=== PATIENT | male | born 1935 | race Caucasian/White ===

== ENCOUNTER → 2023-12-23 14:18 | Outpatient (REF) | payer MEDICARE, SELFPAY | LOC: RCS 14:18 | PROVIDERS: ATTENDING PHYSICIAN Internal Medicine Cardiovascular Disease; FAMILY PHYSICIAN Student in an Organized Health Care Education/Training Program | DX: I35.1 Nonrheumatic aortic (valve) insufficiency (principal) | CPT/HCPCS: 93306 ==

== ENCOUNTER → 2024-01-23 13:49 | Outpatient (REF) | payer MEDICARE, SELFPAY | LOC: HWRAD 13:49 | PROVIDERS: ATTENDING PHYSICIAN Student in an Organized Health Care Education/Training Program | DX: R06.02 Shortness of breath (principal) | CPT/HCPCS: 71046 ==

== ENCOUNTER → 2024-03-02 10:45 | Outpatient (REF) | payer MEDICARE, SELFPAY ==
[2024-03-02 11:59] LABS: Hemoglobin 12.2 g/dL (13.0-18.0); Mean Corp Hgb Conc. 34.9 g/dL (33.0-37.0); Mean Corpuscular Hgb 32.3 pg (27.0-31.0); Mean Corpuscular Volume 92.6 fL (80.0-94.0); Mean Platelet Volume 10.1 fL (7.4-10.4); Platelet Count 265 10^3/uL (130-400); Red Blood Cell Count 3.78 10^6/uL (4.70-6.10)
[2024-03-02 13:41] LABS: Blood Urea Nitrogen 32 mg/dl (9-20); Calcium 9.3 mg/dl (8.4-10.2); Carbon Dioxide 18 mmol/L (22-30); Chloride 109 mmol/L (98-107); Glucose 113 mg/dl (70-99); Potassium 5.1 mmol/L (3.5-5.1); Sodium 140 mmol/L (135-145); eGFR 48.34
== END ==
LOC: REG 10:45
PROVIDERS: ATTENDING PHYSICIAN Urology; FAMILY PHYSICIAN Student in an Organized Health Care Education/Training Program
DX: N40.1 Benign prostatic hyperplasia with lower urinary tract symptoms (principal)
CPT/HCPCS: 36415; 80048; 85027

== ENCOUNTER 2024-03-05 10:38 | Inpatient (IN) | payer MEDICARE, SELFPAY ==
[2024-02-28 09:51] VITALS: BMI 32.9
[2024-02-28 10:32] LABS: Hematocrit 37.1 % (39.0-52.0); Mean Corpuscular Hgb 32.3 pg (27.0-31.0); Mean Corpuscular Volume 92.3 fL (80.0-94.0); Mean Platelet Volume 10.2 fL (7.4-10.4); Platelet Count 266 10^3/uL (130-400); Red Blood Cell Count 4.02 10^6/uL (4.70-6.10); White Blood Cell Count 9.1 10^3/uL (4.8-10.8)
[2024-02-28 10:46] LABS: INR 1.13; PT 14.3 Sec (11.4-14.6)
[2024-02-28 10:47] LABS: APTT 27.8 Sec (23.4-35.0)
[2024-02-28 10:59] LABS: Blood Urea Nitrogen 43 mg/dl (9-20); Calcium 9.6 mg/dl (8.4-10.2); Carbon Dioxide 16 mmol/L (22-30); Chloride 111 mmol/L (98-107); Estimated Creatinine Clearance 36 ml/min; Glucose 110 mg/dl (70-99); Potassium 5.4 mmol/L (3.5-5.1); Sodium 140 mmol/L (135-145)
--- NOTE | 2024-02-28 12:23 | PTCARENOTE ---
[facility] (K+ 5.4, Creat 1.5, BUN 43), Shannan at MD office notified.
[2024-03-03] VITALS (14 sets, daily range): BP systolic 92–134; BP diastolic 51–79; BMI 32.9
[2024-03-03] MEDS: NORMOSOL-R/PLASMALYTE-A 1000 IV (08:55)
--- NOTE | 2024-03-03 11:39 | W.IMMPOSTOP ---
Surgical Immed Post Op Note
-
Primary Surgeon: Zayrafer
Assisting Surgeon: -
Pre-op Diagnosis: BPH, urethral stricture
Post-op Diagnosis: same
Procedure Performed: TURP, urethral dilation with Optilume
Anesthesia Type: genera;
Specimen / Cultures: prostate chips
Estimated Blood Loss: 5cc
Complications: none
Operative Findings: large prostate, significant tissue resected, bulbar urethral stricture <1cm dilated to 30Fr and Optilume administered
[2024-03-03] MEDS: NSS 1000 IV (12:01)
[2024-03-03 12:04] LABS: Hematocrit 33.7 % (39.0-52.0); Hemoglobin 11.7 g/dL (13.0-18.0); Mean Corp Hgb Conc. 34.7 g/dL (33.0-37.0); Mean Corpuscular Hgb 32.4 pg (27.0-31.0); Mean Corpuscular Volume 93.4 fL (80.0-94.0); Platelet Count 222 10^3/uL (130-400); Red Blood Cell Count 3.61 10^6/uL (4.70-6.10); Red Cell Dist. Width 12.8 % (11.5-14.5)
[2024-03-03 12:25] LABS: Blood Urea Nitrogen 31 mg/dl (9-20); Calcium 9.1 mg/dl (8.4-10.2); Carbon Dioxide 19 mmol/L (22-30); Chloride 110 mmol/L (98-107); Estimated Creatinine Clearance 39 ml/min; Glucose 132 mg/dl (70-99); Potassium 5.3 mmol/L (3.5-5.1); Sodium 138 mmol/L (135-145); eGFR 48.34
--- NOTE | 2024-03-03 13:05 | PTCARENOTE ---
Received pt from PACU. 3-way Howe in place CBI running draining clear/ pale yellow urine. VSS and pt on 2L O2. IV fluids NSS @ 75mL/hr running. Pt is AAOx3 and offers no complaints at this time. Oriented to room and call curran within reach.
[2024-03-03] MEDS: TYLENOL 650 MG PO (14:58)
[2024-03-03] MEDS: DETROL LA 4 MG PO (14:58)
--- NOTE | 2024-03-03 15:08 | W.PN.URO.CBU ---
Today's Communication / Plan
-
post op care
Assessment / Plan
-
88M with recurrent BPH related symptoms, obstructive prostate, and mild urethral stricture disease
POD 0 s/p TURP, Optilume urethral stricture dilation
- CBI, clamp in AM
- Discharge with lemus in place for trial of void being arranged - keeping catheter for 48h post Optilume
- CM consulted - VN for home lemus care
- Some asymptomatic metabolic acidosis on preop labs, stable and slightly improved post op
- Trend BMP
- If stable, recommend outpatient follow up with PCP Dr. Ruvalcaba - discussed with him preop and has follow up arranged
Diagnosis
-
Date of Service: March 03, 2024
-
Patient Diagnosis:
BPH
Urethral stricture
Post Op Day:
Subjective
-
post op
Objective
-
Vital Signs
Temp Pulse Resp BP Pulse Ox
97.2 F 58 16 114/55 98
03/03/24 13:30 03/03/24 13:30 03/03/24 13:30 03/03/24 13:30 03/03/24 13:30
Intake and Output
03/02/24 03/03/24 03/04/24
06:59 06:59 06:59
Intake Total 124 / 124
Output Total 50 / 50
Balance 74 / 74
Intake:
Oral fluids
IV fluids (Total) 112 / 112
Nss 1,000 ml @ 75 mls/hr IV . 37 37
[id number] [place] Rx#:[id number]
norm 75 / 75
Output:
True Urine Output from CBI 50 / 50
Laboratory Results
03/03/24 11:52
08/27/24 11:52
Physical Exam
-
General - well developed, well nourished, no acute distress
Chest - clear
Abdomen - soft, non-tender
- 3 way le[address] in [address] clear urine
Skin - warm & dry with no rash
Neuro - AOx3, no motor deficits
Extremities - no clubbing, no cyanosis, no edema
[2024-03-03] MEDS: CRESTOR 10 MG PO (19:22)
[2024-03-03] MEDS: SENOKOT 17.2 MG PO (20:18)
[2024-03-03] MEDS: FLOMAX 0.4 MG PO (22:18)
[2024-03-03] MEDS: ZESTRIL 5 MG PO (22:18)
[2024-03-03] MEDS: PROSCAR 5 MG PO (22:19)
[2024-03-04] VITALS (7 sets, daily range): BP systolic 109–121; BP diastolic 56–74
--- NOTE | 2024-03-04 07:30 | W.PN.URO.CBU ---
Today's Communication / Plan
-
- Restart CBI today - wean as tolerated to clear/clot-free
- Plan to keep additional 24 hrs due to ongoing hematuria requiring CBI
- Possible d/c 03/05 - will plan for inpatient TOV if so
D/w patient.
D/w RN.
Assessment / Plan
-
88M with recurrent BPH related symptoms, obstructive prostate, and mild urethral stricture disease
POD 1 s/p TURP, Optilume urethral stricture dilation
- Restart CBI today - wean as tolerated to clear/clot-free
- Plan to keep additional 24 hrs due to ongoing hematuria requiring CBI
- Possible d/c 03/05 - will plan for inpatient TOV if so
Diagnosis
-
Date of Service: March 04, 2024
-
Patient Diagnosis:
BPH
Urethral stricture
03/03: s/p TURP + Optilume
Subjective
-
Urine clamped @0600 - notable grossly bloody urine @0800 this AM.
Mild bloody discharge per urethra around catheter (expected).
Denies penile/suprapubic pain.
Objective
-
Vital Signs
Temp Pulse Resp BP Pulse Ox
97.6 F 63 18 117/59 97
03/04/24 03:07 03/04/24 03:07 03/04/24 03:07 03/04/24 03:07 03/04/24 03:07
Intake and Output
03/03/24 03/04/24 03/05/24
06:59 06:59 06:59
Intake Total 1319 / 1319
Output Total 1900 / 1900
Balance -581 / -581
Intake:
Oral fluids 832 / 832
IV fluids (Total) 487 / 487
Nss 1,000 ml @ 75 mls/hr IV . 37 /
[id number] [place] Rx#:[id number]
norm 75 / 75
Output:
True Urine Output from CBI 1899
Physical Exam
-
General - well developed, well nourished, no acute distress
Abdomen - soft, non-tender, non-distended
- 3-way catheter w/ frankly blood urine output in tubing, no obvious clots
Skin - warm & dry with no rash
Neuro - AOx3, no motor deficits
Extremities - no clubbing, no cyanosis, no edema
Care Review
Data Reviewed
Discussed with: Nursing
Total Time Spent with Patient (in minutes): 30
[2024-03-04 08:26] LABS: Hemoglobin 11.9 g/dL (13.0-18.0); Mean Corpuscular Hgb 33.2 pg (27.0-31.0); Mean Platelet Volume 10.3 fL (7.4-10.4); Platelet Count 229 10^3/uL (130-400); Red Blood Cell Count 3.58 10^6/uL (4.70-6.10); Red Cell Dist. Width 12.7 % (11.5-14.5); White Blood Cell Count 18.8 10^3/uL (4.8-10.8)
[2024-03-04] MEDS: SENOKOT 17.2 MG PO (08:49)
[2024-03-04] MEDS: LOW STRENGTH ASPIRIN 81 MG PO (08:50)
[2024-03-04] MEDS: ALDACTONE 25 MG PO (08:50)
[2024-03-04] MEDS: TOPROL XL 25 MG PO (08:50)
[2024-03-04] MEDS: NORVASC 2.5 MG PO (08:50)
[2024-03-04 08:58] LABS: Blood Urea Nitrogen 32 mg/dl (9-20); Calcium 9.2 mg/dl (8.4-10.2); Carbon Dioxide 15 mmol/L (22-30); Chloride 111 mmol/L (98-107); Estimated Creatinine Clearance 42 ml/min; Glucose 142 mg/dl (70-99); Potassium 5.6 mmol/L (3.5-5.1); Sodium 139 mmol/L (135-145); eGFR 52.84
--- NOTE | 2024-03-04 12:51 | CM ---
Patient seen bedside.
Daughter bedside with patient.
IA completed.
Patient lives alone in a 1 story home with 1 step.
Patient has a very old standard walker, would like a new RW if recommended by therapy.
Patient also has a cane.
Patient drives.
Patients daughter reports LE weakness at home and difficulty with LE dressing and would like therapy to evaluate. CM requested PT/OT evals.
Patient currently with [facility] and CBI.
It PT/OT recommend home therapy or patient needs VN, patient and daughter would like [facility].
PCP: Dr Welch
Pharmacy: [facility]
Plan: home with possible VN needs ([facility] if indicated)
--- NOTE | 2024-03-04 13:46 | CON.HOSP ---
Family Physician
-
Family Physician: Ramirez Ruvalcaba, DO
Chief Complaint
-
Hyperkalemia
History of Present Illness
88-year-old male with a past medical history of hypertension, hyperlipidemia, CAD status post stent placement, BPH with obstructive symptoms, and mild urethral stricture was admitted yesterday for TURP and optilume urethral stricture dilation.
Patient was found to have worsening hyperkalemia today. Potassium is 5.6, was 5.3 yesterday. Internal medicine was consulted for hyperkalemia.
Currently patient denies pain. He does have hematuria. No chest pain, no nausea, no vomiting. He has chronic shortness of breath. No fever.
Medical History
Past Medical History
Past Medical History: Reports Other
Additional Past Medical History:
Asthma
Hypertension
Hyperlipidemia
Coronary artery disease status post stent placement x 2
Benign prostatic hypertrophy with obstruction
Mild urethral stricture
Past Surgical History: Reports Other
Additional Past Surgical History:
Prostate surgery
Cardiac stent x 2
Umbilical hernia repair
Social History
Tobacco: Former Smoker
Alcohol: None
Personal:
Family History
Family History: Reviewed & Not Pertinent
Allergies / Home Medications
Allergies reflects when Allergies were last updated in [facility].
Home Medications with original date entered in [facility]
Allergy/Medication List:
Allergies
Allergy/AdvReac Type Severity Reaction Status Date / Time
Penicillins Allergy Unknown Verified 03/03/24 08:20
Home Medications Table - record
�Medication �Instructions �Recorded �Confirmed
amlodipine 2.5 mg tablet 2.5 mg PO DAILY 08/28/21 03/03/24
aspirin 81 mg chewable tablet 81 mg PO DAILY 08/28/21 03/03/24
finasteride 5 mg tablet 5 mg PO HS 08/28/21 03/03/24
rosuvastatin 10 mg tablet 10 mg PO QPM 08/28/21 03/03/24
albuterol sulfate 90 mcg/actuation 2 inh inhalation Q4H PRN shortness 12/12/22 03/03/24
breath activated powder inhaler of breath #1 ea
famotidine 20 mg tablet 20 mg PO PRN PRN GERD 02/26/24 03/03/24
lisinopril 5 mg tablet 5 mg PO HS 02/26/24 03/03/24
silodosin 8 mg capsule 8 mg PO HS 02/26/24 03/03/24
spironolactone 25 mg tablet 25 mg PO DAILY 02/26/24 03/03/24
metoprolol succinate 25 mg 25 mg PO DAILY 03/03/24 03/03/24
tablet,extended release 24 hr
Review of Systems
-
A 12 point Review of Systems was completed except as noted: Yes
Physical Exam
Vital Signs
Vital Signs
Temp Pulse Resp BP Pulse Ox
97.8 F 84 16 109/56 97
03/04/24 11:25 03/04/24 11:25 03/04/24 11:25 03/04/24 11:25 03/04/24 11:25
Physical Exam
General: No Apparent Distress
HEENT: Normocephalic, Anicteric and Moist Mucous Membranes
Respiratory: Clear
Cardiac: S1/S2
GI: Soft, Non Tender, Non Distended and Normal Bowel Sounds
Musculoskeletal: No Clubbing and No Cyanosis
Skin: Warm
Neuro: Awake, Alert and Oriented
Psych: Calm
Laboratory Results
-
Laboratory Results
03/04/24 07:33
03/04/24 07:33
PT 14.3 Sec (11.4-14.6) 02/28/24 09:57
INR 1.13 02/28/24 09:57
APTT 27.8 Sec (23.4-35.0) 02/28/24 09:57
Impression / Plan
-
HPI: 88-year-old male with a past medical history of hypertension, hyperlipidemia, CAD status post stent placement, BPH with obstructive symptoms, and mild urethral stricture was admitted yesterday for TURP and optilume urethral stricture dilation.
Patient was found to have worsening hyperkalemia today. Potassium is 5.6, was 5.3 yesterday. Internal medicine was consulted for hyperkalemia.
Currently patient denies pain. He does have hematuria. No chest pain, no nausea, no vomiting. He has chronic shortness of breath. No fever.
#BPH with obstructive symptoms
#Mild urethral stricture
TURP and optilume urethral stricture dilation 03/03
Plan of care as per urology
#Hematuria
CBI as per urology
#Hyperkalemia
Potassium 5.6 today
Give Lokelma, hold lisinopril/spironolactone, low potassium diet
Recheck a.m. labs
#Non-anion gap metabolic acidosis
Sodium bicarb IV fluids, oral sodium bicarb
Recheck a.m. labs
#Leukocytosis
Likely reactive
Patient is afebrile, monitor off antibiotics
#Constipation
Start aggressive bowel regimen
#Probable stage III chronic kidney disease
Trend creatinine
#Obesity due to excess calories
Affects all aspects of care
DVT prophylaxis�SCDs secondary to hematuria
Full code
Total time spent to see the patient on the floor, examine the patient, review data and lab results, discuss treatment plan with patient, nursing staff around 77 minutes.
[2024-03-04] MEDS: LOKELMA 10 GRAM PO ×2 (14:40→18:31)
[2024-03-04] MEDS: SODIUM BICARBONATE 1300 MG PO ×2 (14:45→21:03)
[2024-03-04] MEDS: MIRALAX 17 GRAMS PO (14:48)
[2024-03-04] MEDS: SODIUM BICARBONATE 1075 MEQ IV (14:49)
[2024-03-04] MEDS: SODIUM BICARBONATE PO (17:00)
[2024-03-04] MEDS: CRESTOR 10 MG PO (18:00)
[2024-03-04 18:47] LABS: COVID-19 Antigen Negative (Negative)
[2024-03-04] MEDS: ROBITUSSIN AC 5 ML PO (18:47)
[2024-03-04] MEDS: SENOKOT-S 2 TABLET PO (20:00)
[2024-03-04] MEDS: SENOKOT PO (20:00)
[2024-03-04] MEDS: PROSCAR 5 MG PO (21:03)
[2024-03-04] MEDS: FLOMAX 0.4 MG PO (21:03)
[2024-03-05] MEDS: SODIUM BICARBONATE 1075 MEQ IV (03:52)
[2024-03-05 06:00] VITALS: BMI 32.9
[2024-03-05] MEDS: LOKELMA 10 GRAM PO (06:22)
[2024-03-05 07:00] VITALS: BP 126/77
[2024-03-05] MEDS: SENOKOT PO ×2 (08:01→19:58)
--- NOTE | 2024-03-05 08:04 | W.PN.HOSP.TC ---
Today's Communication/Plan
-
see bold
Assessment / Plan
Assessment / Plan
HPI: 88-year-old male with a past medical history of hypertension, hyperlipidemia, CAD status post stent placement, BPH with obstructive symptoms, and mild urethral stricture was admitted yesterday for TURP and optilume urethral stricture dilation.
Patient was found to have worsening hyperkalemia today. Potassium is 5.6, was 5.3 yesterday. Internal medicine was consulted for hyperkalemia.
Currently patient denies pain. He does have hematuria. No chest pain, no nausea, no vomiting. He has chronic shortness of breath. No fever.
#BPH with obstructive symptoms
#Mild urethral stricture
TURP and optilume urethral stricture dilation 03/03
Plan of care as per urology
Needs STR upon dc
#Hematuria
CBI off and lemus removed for trial of void
#Hyperkalemia
Potassium normalized, status post Lokelma
Continue to hold lisinopril/spironolactone, low potassium diet
Monitor
#Non-anion gap metabolic acidosis
Resolved status post sodium bicarb IV fluids, oral sodium bicarb
#Leukocytosis
Likely reactive
Patient is afebrile, monitor off antibiotics
#Constipation
Resolved, will decrease bowel regimen
#Probable stage III chronic kidney disease
Trend creatinine
#Obesity due to excess calories
Affects all aspects of care
DVT prophylaxis�SCDs secondary to hematuria
Full code
Updated daughter at bedside 03/05
Total time spent to see the patient on the floor, examine the patient, review data and lab results, discuss treatment plan with patient, nursing staff around 42 minutes.
Physical Exam
General: Obese, no acute distress
HEENT: Normocephalic, Atraumatic, EOMI, MMM
Respiratory: Clear to Auscultation bilaterally
Cardiac: Normal S1/S2, Regular Rate and Rhythm
GI: Soft, Nontender, Nondistended, Normal Bowel Sounds
Extremities: No Clubbing, Cyanosis, or Edema
Anticipated Discharge: Within 24 hours
Subjective/Interval History
-
Date of Service: March 05, 2024
Patient has had multiple bowel movements. Has chronic shortness of breath. No fever, no vomiting.
Objective Data
-
Labs:
Laboratory Results
03/05/24
06:00
WBC Pending
Hgb Pending
Hct Pending
Plt Count Pending
Sodium Pending
Potassium Pending
Chloride Pending
Carbon Dioxide Pending
BUN Pending
Creatinine Pending
Glucose Pending
Calcium Pending
Vital Signs:
Vital Signs
Temp Pulse Resp BP Pulse Ox
98.1 F 62 18 118/66 95
03/04/24 22:37 03/04/24 22:37 03/04/24 22:37 03/04/24 22:37 03/04/24 22:37
I&O
03/04/24 03/05/24 03/06/24
06:59 06:59 06:59
Intake Total 1319 / 1319 1979 / 1979
Output Total 1900 / 1900 3550 / 3550
Balance -581 / -581 -1570 / -1570
[2024-03-05] MEDS: MIRALAX PO (08:27)
[2024-03-05] MEDS: LOW STRENGTH ASPIRIN 81 MG PO (08:27)
[2024-03-05] MEDS: SODIUM BICARBONATE 1300 MG PO (08:27)
[2024-03-05] MEDS: SENOKOT-S PO (08:27)
[2024-03-05] MEDS: NORVASC 2.5 MG PO (08:27)
[2024-03-05] MEDS: TOPROL XL 25 MG PO (08:28)
[2024-03-05 09:02] LABS: Hematocrit 36.2 % (39.0-52.0); Hemoglobin 12.5 g/dL (13.0-18.0); Mean Corp Hgb Conc. 34.5 g/dL (33.0-37.0); Mean Corpuscular Hgb 32.1 pg (27.0-31.0); Mean Corpuscular Volume 93.1 fL (80.0-94.0); Mean Platelet Volume 10.1 fL (7.4-10.4); Platelet Count 258 10^3/uL (130-400); Red Blood Cell Count 3.89 10^6/uL (4.70-6.10); Red Cell Dist. Width 13.2 % (11.5-14.5); White Blood Cell Count 15.8 10^3/uL (4.8-10.8)
[2024-03-05 09:25] VITALS: BP 147/81; PULSE 104; O2SAT 98
[2024-03-05 09:27] VITALS: BP 147/81
[2024-03-05 09:29] LABS: Blood Urea Nitrogen 32 mg/dl (9-20); Carbon Dioxide 23 mmol/L (22-30); Chloride 106 mmol/L (98-107); Estimated Creatinine Clearance 42 ml/min; Glucose 127 mg/dl (70-99); Magnesium 1.9 mg/dl (1.6-2.3); Potassium 4.5 mmol/L (3.5-5.1); Sodium 139 mmol/L (135-145); eGFR 52.84
--- NOTE | 2024-03-05 09:55 | PTCARENOTE ---
Howe removed by nephrology, CBI output documented, pt and family member made aware of need to void by 1600 today. Pt resting comfortably in the chair, no new orders at this time.
--- NOTE | 2024-03-05 10:01 | W.PN.URO.CBU ---
Today's Communication / Plan
-
Trial of void
Dispo planning
Assessment / Plan
-
88M with recurrent BPH related symptoms, obstructive prostate, and mild urethral stricture disease
POD 2 s/p TURP, Optilume urethral stricture dilation
- Hematuria resolved this AM
- CBI off and lemus removed for trial of void
- Having BMs this AM
- Leukocytosis likely reactive post op
- Hospitalist recommendations for hyperkalemia and acidosis
- PT/OT recs for dispo - possible rehab
Diagnosis
-
Date of Service: March 05, 2024
-
Patient Diagnosis:
BPH
Urethral stricture
03/03: s/p TURP + Optilume
Subjective
-
had BMs this AM feeling better
Hematuria resolved
Objective
-
Vital Signs
Temp Pulse Resp BP Pulse Ox
98.1 F 96 18 126/77 98
03/05/24 07:00 03/05/24 08:27 03/05/24 07:00 03/05/24 08:27 03/05/24 09:59
Intake and Output
03/04/24 03/05/24 03/06/24
06:59 06:59 06:59
Intake Total 1319 / 1319 1979 / 1979
Output Total 1900 / 1900 3550 / 3550 550 / 550
Balance -581 / -581 -1570 / -1570 -550 / -550
Intake:
Oral fluids 832 / 832 1080 / 1080
IV fluids (Total) 487 / 487 900 / 900
Nss 1,000 ml @ 75 mls/hr IV . 37 / 37
[id number] [place] Rx#:[id number]
norm 75 / 75
Output:
Urine, Lemus 200 / 200
True Urine Output from CBI 1900 / 1900 3350 / 3350 550 / 550
Laboratory Results
03/05/24 08:47
03/05/24 08:47
Physical Exam
-
General - well developed, well nourished, no acute distress
Chest - clear
Abdomen - soft, non-tender
- lemus in place, clear urine no CBI
Skin - warm & dry with no rash
Neuro - AOx3, no motor deficits
Extremities - no clubbing, no cyanosis, no edema
[2024-03-05] MEDS: ZOFRAN 4 MG IV (12:11)
--- NOTE | 2024-03-05 13:00 | PTCARENOTE ---
Pt is on void trial post CBI removal, pt has successfully voided over 350 since pulling lemus at 1000.
[2024-03-05 15:00] VITALS: BP 113/61
--- NOTE | 2024-03-05 15:30 | CM ---
Addendum entered by Claribel Jones 03/05/24 16:50:
IMM explained & signed by patient. Placed in chart.
Original Note:
Patient and daughter seen at bedside.
PT recommending SNF
CM discussed options with patient and daughter.
[facility] accept insurance.
[facility] & [facility] bed available tomorrow.
Spoke with jeni Mckeon [phone] & she will speak with patient.
CM to call for insurance authorization once decision is made to go to [facility].
[facility] NPI #: [id number] DR. SALINAS ALLEN NPI #: [id number]
PLAN: SNF, await call back from jeni Mckeon & then CM will obtain insurance auth.
[2024-03-05] MEDS: CRESTOR 10 MG PO (17:45)
[2024-03-05] MEDS: FLOMAX 0.4 MG PO (21:04)
[2024-03-05] MEDS: PROSCAR 5 MG PO (21:05)
[2024-03-05] MEDS: FLUSH (NSS) 1 FLUSH IV (21:07)
[2024-03-05] MEDS: TYLENOL 650 MG PO (21:11)
[2024-03-05 23:01] VITALS: BP 105/57
[2024-03-06 05:05] VITALS: BMI 32.8
[2024-03-06 07:00] VITALS: BP 109/60
[2024-03-06 07:23] LABS: Hematocrit 30.7 % (39.0-52.0); Hemoglobin 10.8 g/dL (13.0-18.0); Mean Corp Hgb Conc. 35.2 g/dL (33.0-37.0); Mean Corpuscular Hgb 32.8 pg (27.0-31.0); Mean Corpuscular Volume 93.3 fL (80.0-94.0); Platelet Count 214 10^3/uL (130-400); Red Blood Cell Count 3.29 10^6/uL (4.70-6.10); White Blood Cell Count 8.4 10^3/uL (4.8-10.8)
[2024-03-06 07:50] LABS: Blood Urea Nitrogen 31 mg/dl (9-20); Calcium 8.9 mg/dl (8.4-10.2); Carbon Dioxide 25 mmol/L (22-30); Chloride 107 mmol/L (98-107); Estimated Creatinine Clearance 42 ml/min; Glucose 115 mg/dl (70-99); Magnesium 2.1 mg/dl (1.6-2.3); Phosphorus 3.4 mg/dl (2.5-4.5); Potassium 4.3 mmol/L (3.5-5.1); Sodium 139 mmol/L (135-145); eGFR 52.84
--- NOTE | 2024-03-06 08:21 | W.PN.HOSP.TC ---
Today's Communication/Plan
-
Discharge to short-term rehab today
Assessment / Plan
Assessment / Plan
HPI: 88-year-old male with a past medical history of hypertension, hyperlipidemia, CAD status post stent placement, BPH with obstructive symptoms, and mild urethral stricture was admitted yesterday for TURP and optilume urethral stricture dilation.
Patient was found to have worsening hyperkalemia today. Potassium is 5.6, was 5.3 yesterday. Internal medicine was consulted for hyperkalemia.
Currently patient denies pain. He does have hematuria. No chest pain, no nausea, no vomiting. He has chronic shortness of breath. No fever.
#BPH with obstructive symptoms
#Mild urethral stricture
TURP and optilume urethral stricture dilation 03/03
Plan of care as per urology
Discharge to short-term rehab today
#Hematuria
Status post CBI, Howe removed
He is voiding
#Hyperkalemia
Potassium normalized, status post Lokelma
Would recommend holding lisinopril/spironolactone upon discharge
#Non-anion gap metabolic acidosis
Resolved status post sodium bicarb IV fluids, oral sodium bicarb
#Leukocytosis
Likely reactive
Patient is afebrile, monitor off antibiotics
#Constipation
Resolved, will decrease bowel regimen
#Benign essential hypertension
Continue amlodipine 2.5 mg daily
#Probable stage III chronic kidney disease
Trend creatinine
#Obesity due to excess calories
Affects all aspects of care
DVT prophylaxis�SCDs secondary to hematuria
Full code
Updated daughter at bedside 03/06
Total time spent to see the patient on the floor, examine the patient, review data and lab results, discuss treatment plan with patient, nursing staff around 39 minutes.
Physical Exam
General: Obese, no acute distress
HEENT: Normocephalic, Atraumatic, EOMI, MMM
Respiratory: Clear to Auscultation bilaterally
Cardiac: Normal S1/S2, Regular Rate and Rhythm
GI: Soft, Nontender, Nondistended, Normal Bowel Sounds
Extremities: No Clubbing, Cyanosis, or Edema
Anticipated Discharge: Today
Subjective/Interval History
-
Date of Service: March 06, 2024
No acute events overnight. Patient reports minimal hematuria. He has chronic shortness of breath. No chest pain. No fever, no vomiting.
Objective Data
-
Labs:
Laboratory Results
03/06/24
07:00
WBC 8.4
Hgb 10.8 L
Hct 30.7 L
Plt Count 214
Sodium 139
Potassium 4.3
Chloride 107
Carbon Dioxide 25
BUN 31 H
Creatinine 1.3
Glucose 115 H
Calcium 8.9
Vital Signs:
Vital Signs
Temp Pulse Resp BP Pulse Ox
97.5 F 84 16 109/60 96
03/06/24 07:00 03/06/24 07:00 03/06/24 07:00 03/06/24 07:00 03/06/24 07:00
I&O
03/05/24 03/06/24 03/07/24
06:59 06:59 06:59
Intake Total 1979 / 1979 1200 / 1200
Output Total 3550 / 3550 2155 / 2155
Balance -1570 / -1570 -955 / -955
[2024-03-06] MEDS: SENOKOT PO (09:26)
[2024-03-06] MEDS: TOPROL XL 25 MG PO (09:26)
[2024-03-06] MEDS: LOW STRENGTH ASPIRIN 81 MG PO (09:26)
[2024-03-06] MEDS: NORVASC 2.5 MG PO (09:26)
--- NOTE | 2024-03-06 09:39 | CM ---
Addendum entered by Claribel Jones 03/06/24 12:18:
Insurance approved SNF
Spoke with Prema Chu at [facility] [phone]
Start 03/06 NRD 03/10
Authorization ID not generated yet, use reference #: [id number]
[facility] [employer]: Lachelle Trevino - Fax # for updates [phone]
Called Hortencia at [facility] and updated her with all information.
Will set up transport.
Original Note:
CM called and spoke with Natalie Nettles at [facility] [phone] ins. auth. Reference #: [id number]
Faxed clinicals to [facility] [phone] insurance authorization today.
Await authorization.
Bed available at [facility] today per Hortencia.
PLAN: [facility], pending insurance authorization
[facility]
Report #: [phone]
Fax #: [phone]
--- NOTE | 2024-03-06 09:48 | W.PN.URO.CBU ---
Addendum entered and electronically signed by Miki Ta MD 03/06/24 15:07:
Anemia - likely dilutional, hematuria post op not significant
Original Note:
Today's Communication / Plan
-
Dispo to rehab
Assessment / Plan
-
88M with recurrent BPH related symptoms, obstructive prostate, and mild urethral stricture disease
POD 2 s/p TURP, Optilume urethral stricture dilation
- Hematuria resolved and passed trial of void with PVR 100cc
- Having BMs this AM, constipation resolved
- Leukocytosis resolved
- Hospitalist recommendations for hyperkalemia and acidosis - resolved on current regimen. Appreciate final med recs
- PT/OT recs dispo to rehab
Plan for discharge to rehab today
Follow up 3 weeks
Diagnosis
-
Date of Service: March 06, 2024
-
Patient Diagnosis:
BPH
Urethral stricture
03/03: s/p TURP + Optilume
Subjective
-
Voiding with no hematuria
some dysuria and icontinence
Objective
-
Vital Signs
Temp Pulse Resp BP Pulse Ox
97.5 F 84 16 109/60 95
03/06/24 07:00 03/06/24 09:26 03/06/24 08:47 03/06/24 09:26 03/06/24 08:47
Intake and Output
03/05/24 03/06/24 03/07/24
06:59 06:59 06:59
Intake Total 1979 / 1979 1200 / 1200
Output Total 3550 / 3550 2155 / 2155
Balance -1570 / -1570 -955 / -955
Intake:
Oral fluids 1080 / 1080 1200 / 1200
IV fluids (Total) 900 / 900
Output:
Urine, Howe 200 / 200
Urine, Voided 1605 / 1605
True Urine Output from CBI 3350 / 3350 550 / 550
Other:
Number of approximated SMALL 1
amounts of urine
How many times incontinent 1
MODERATE amount urine
Laboratory Results
03/06/24 07:00
03/06/24 07:00
Physical Exam
-
General - well developed, well nourished, no acute distress
Chest - clear bilaterally
Abdomen - soft, non-tender
Genitalia - normal
--- NOTE | 2024-03-06 10:02 | W.DS.TRANS ---
DC Summary - Domestic Laundry Worker
-
Discharge Instructions:
Discharge Diagnosis/Procedures BPH, urethral stricture
Transurethral resection of prostate, urethral
dilation
Diet No restrictions
Activity No strenuous activity
Additional Activity avoid lifting, straining, and strenuous activity
for 1 week. Okay to walk and stay active around
the house
Driving Restrictions As prior to admission
Bathing Restrictions OK to Shower
Instructions:
Stand-Alone Forms:
Changes to Home Medications: Yes
Discharge Medications:
DC Medications w/original date entered in [facility]
amlodipine 2.5 mg tablet 2.5 mg PO DAILY 08/28/21
aspirin 81 mg chewable tablet 81 mg PO DAILY 08/28/21
finasteride 5 mg tablet 5 mg PO HS 08/28/21
rosuvastatin 10 mg tablet 10 mg PO QPM 08/28/21
albuterol sulfate 90 mcg/actuation breath activated powder inhaler 2 inh inhalation Q4H PRN shortness of breath #1 ea 12/12/22
famotidine 20 mg tablet 20 mg PO PRN PRN GERD 02/26/24
silodosin 8 mg capsule 8 mg PO HS 02/26/24
metoprolol succinate 25 mg tablet,extended release 24 hr 25 mg PO DAILY 03/03/24
Home Medication Changes
Pending Results: No
Total time spent discharging patient (in min): 30
--- NOTE | 2024-03-06 14:12 | PN.CDI ---
CDI
- -
CDI:
Physician Documentation Request
Admit Date: 03/05/24 10:38
Dear Doctor Keyon,
Patient underwent TURP and Optilume urethral stricture dilation.
03/04 urology note states 'restart CBI, plan to keep an additional 24 hrs due to ongoing hematuria..'
H/H results:
Laboratory Tests
02/28/24 03/03/24 03/05/24
09:57 11:52 08:47
Hgb 13.0 11.7 L 12.5 L
Hct 37.1 L 33.7 L 36.2 L
03/06/24
07:00
Hgb 10.8 L
Hct 30.7 L
Could you provide a diagnosis that supports the lab above abnormalities and additional evaluation/monitoring:
acute blood loss anemia
anemia - other - please specify
Abnormal lab value clinically insignificant
Other
Use of terms such as suspected, likely, concern for, or probable (associated with a specific diagnosis that is being evaluated, monitored, or treated as if it exists) are acceptable and can be coded in the inpatient setting, when documented at the
time of discharge.
Thank you,
Renae Hall RN, BSN
CDI Specialist
tiger text
Please use your independent medical judgment in providing your response.
[2024-03-06] MEDS: TYLENOL 650 MG PO (14:20)
[2024-03-06 16:00] VITALS: BP 104/59
--- NOTE | 2024-03-06 16:09 | PTCARENOTE ---
Report called to Sherita astudillo [place] at 1550. Instructed to call back at EXT [phone] with any questions. Transport set for 1730 tonight.
== END 2024-03-06 17:59 | DRG 713 ==
LOC: 2 NORTH 10:38
PROVIDERS: Anesthesiology; ADMITTING PHYSICIAN Urology; CONSULT PHYSICIAN Family Medicine; FAMILY PHYSICIAN Student in an Organized Health Care Education/Training Program
PROC: 0T7D8ZZ Dilation of Urethra, Via Natural or Artificial Opening Endoscopic (ICD-10-PCS; 2024-03-03)
PROC: 0VB08ZZ Excision of Prostate, Via Natural or Artificial Opening Endoscopic (ICD-10-PCS; 2024-03-03)
DX: N40.1 Benign prostatic hyperplasia with lower urinary tract symptoms (principal); E87.20 Acidosis, unspecified; N13.8 Other obstructive and reflux uropathy; N35.912 Unspecified bulbous urethral stricture, male; E87.5 Hyperkalemia; I25.10 Atherosclerotic heart disease of native coronary artery without angina pectoris; I12.9 Hypertensive chronic kidney disease with stage 1 through stage 4 chronic kidney disease, or unspecified chronic kidney disease; N18.30 Chronic kidney disease, stage 3 unspecified; J45.909 Unspecified asthma, uncomplicated; K59.00 Constipation, unspecified; D72.829 Elevated white blood cell count, unspecified; R35.0 Frequency of micturition; R33.8 Other retention of urine; N39.498 Other specified urinary incontinence; E78.2 Mixed hyperlipidemia; D64.89 Other specified anemias; I35.1 Nonrheumatic aortic (valve) insufficiency; E66.09 Other obesity due to excess calories; Z68.32 Body mass index [BMI] 32.0-32.9, adult; Z87.891 Personal history of nicotine dependence; Z95.5 Presence of coronary angioplasty implant and graft; Z86.73 Personal history of transient ischemic attack (TIA), and cerebral infarction without residual deficits; Z11.52 Encounter for screening for COVID-19; Z79.82 Long term (current) use of aspirin; Z79.899 Other long term (current) drug therapy; Z88.0 Allergy status to penicillin
CPT/HCPCS: 88305; 36415; 80048; 83735; 84100; 84132; 85027; 85610; 85730; 87811; 93005; 97163; 97166; 97535; C1726; J7030

== ENCOUNTER → 2024-03-10 12:49 | Outpatient (REF) | payer MEDICARE, SELFPAY ==
[2024-03-10 13:28] LABS: Hematocrit 32.2 % (39.0-52.0); Mean Corp Hgb Conc. 34.2 g/dL (33.0-37.0); Mean Corpuscular Hgb 32.8 pg (27.0-31.0); Mean Corpuscular Volume 96.1 fL (80.0-94.0); Mean Platelet Volume 10.6 fL (7.4-10.4); Platelet Count 230 10^3/uL (130-400); Red Blood Cell Count 3.35 10^6/uL (4.70-6.10); Red Cell Dist. Width 12.8 % (11.5-14.5); White Blood Cell Count 8.3 10^3/uL (4.8-10.8)
[2024-03-10 14:25] LABS: ALT (SGPT) 34 U/L (0-50); AST (SGOT) 30 U/L (17-59); Alkaline Phosphatase 92 U/L (38-126); Blood Urea Nitrogen 27 mg/dl (9-20); Calcium 8.8 mg/dl (8.4-10.2); Carbon Dioxide 20 mmol/L (22-30); Chloride 108 mmol/L (98-107); Free T4 1.29 ng/dl (0.78-2.19); Glucose 100 mg/dl (70-99); Magnesium 2.3 mg/dl (1.6-2.3); Potassium 4.6 mmol/L (3.5-5.1); Sodium 136 mmol/L (135-145); Total Protein 5.4 g/dl (6.3-8.2); eGFR 57.81
[2024-03-10 14:39] LABS: TSH 1.63 uIU/ml (0.47-4.68)
== END ==
LOC: OLABWHC 12:49
PROVIDERS: ATTENDING PHYSICIAN Internal Medicine
DX: I10 Essential (primary) hypertension (principal); N40.0 Benign prostatic hyperplasia without lower urinary tract symptoms; K21.9 Gastro-esophageal reflux disease without esophagitis
CPT/HCPCS: 36415; 80053; 83735; 84439; 84443; 85027

== ENCOUNTER → 2024-04-17 16:45 | Outpatient (REF) | payer MEDICARE, SELFPAY ==
[2024-04-17 17:19] LABS: Urine Albumin 2+ (Neg - Trace); Urine Bilirubin 1+ (Negative); Urine Character Bloody (Clear); Urine Color Amber; Urine Glucose Negative (Negative); Urine Ketone Trace (Negative); Urine Leukocyte 2+ (Negative); Urine Nitrite Negative (Negative); Urine Occult Blood 4+ (Negative); Urine Specific Gravity 1.025 (<1.030); Urine Urobilinogen Negative (Neg - 1+)
[2024-04-17 19:47] LABS: Urine Red Blood Cell >100 /HPF (0-2)
[2024-04-17 19:48] LABS: Urine Bacteria Few (Negative); Urine White Cell 80-90 /HPF (0-5)
== END ==
LOC: REG 16:45
PROVIDERS: ATTENDING PHYSICIAN Urology; FAMILY PHYSICIAN Student in an Organized Health Care Education/Training Program
DX: N39.0 Urinary tract infection, site not specified (principal)
CPT/HCPCS: 81003; 81015; 87086

== ENCOUNTER → 2024-05-08 14:14 | Outpatient (REF) | payer MEDICARE, SELFPAY | LOC: HWRAD 14:14 | PROVIDERS: ATTENDING PHYSICIAN Student in an Organized Health Care Education/Training Program | DX: M25.551 Pain in right hip (principal); M25.532 Pain in left wrist | CPT/HCPCS: 73110; 73522 ==

== ENCOUNTER 2024-07-22 06:38 | Inpatient (IN) | payer MEDICARE, OTHER, SELFPAY ==
[2024-07-20 15:01] VITALS: BP 135/79
--- NOTE | 2024-07-20 15:15 | ED.GENMED ---
ED Provider Triage
<Charo Solis LEMON GROWER - Last Filed: 07/20/24 15:22>
-
Patient seen by provider in Triage?: Seen in Triage
Attestation: A medical screening examination has been initiated by a qualified medical provider. Based on the assessment performed at this time, it has been determined that an emergent medical condition may exist and the patient has been informed
that further medical evaluation and possible additional diagnostic testing may be needed.
HPI: 89-year-old male with history of HTN, HLD, BPH, presents for generalized weakness, feels weak in his legs, has pains in multiple joints 9 'my hands my shoulders my knees'), pains seem to be getting worse. Fell 10 days ago (no significant
injury) when his right knee gave out., Has had trouble with that knee in the past.
Has had a cough for 2 weeks. Has been more short of breath with exertion.
GENERAL: Alert , in no apparent distress
EYE: No visual abnormalities.
NECK: Trachea midline
ENT: No visible abnormalities.
LUNGS: No acute respiratory distress
NEUROLOGICAL: Alert and oriented
SKIN: Skin intact. No visible changes.
MUSCULOSKELETAL: Moving extremities normally
PSYCH: Normal and appropriate interaction.
This is a medical evaluation conducted in person to initiate diagnostic evaluation and provide initial therapeutics. Please see further documentation by the treating clinician.
History of Present Illness
<Charo Solis LEMON GROWER - Last Filed: 07/20/24 15:22>
General
Chief Complaint: Weakness
Time Seen by Provider: 07/20/24 19:24
<Trey Kaufman MD - Last Filed: 07/20/24 21:58>
General
Source: patient and family (Daughter)
Exam Limitations: none
Nursing documentation reviewed up to this point in time: agreed with
History of Present Illness
History of Present Illness:
89-year-old male with a past medical history of hypertension, hyperlipidemia, CAD, BPH who presents to the emergency room with his daughter for evaluation of arthralgias and myalgias, generalized weakness. Patient reports that this is really been
ongoing for 2 months but it has been especially bad for the past 2 weeks or so. He reports achiness 'all over' specifically in his hands and legs. He says that his legs feel very weak and that lately his knees have 'buckled' underneath him and
this has resulted in multiple falls most recently 07/11/2024�he says that he fell towards his right side and injured his wrist, knee, right groin. No head strike. He says in addition to all of his aches and pains he has had a persistent cough for
the past few weeks nonproductive. He reports some mild shortness of breath. He denies any chest or rib pain. He denies any abdominal pain. Denies any nausea, vomiting, diarrhea. He denies any fevers. He denies any UTI symptoms although he does
admit to urinary frequency from his BPH. He is not on any blood thinners. He says that he presented today to the emergency room because he is not feeling better and his daughter urged him to come in.
Past History
<Charo Solis NP - Last Filed: 07/20/24 15:22>
Past History
ED Past Medical History: CAD, HTN and Hypercholesterolemia
ED Past Surgical History: Cardiac
Social History
Tobacco: Former smoker
Alcohol: None
Drug: None
Living: alone
Employment: Retired
Review of Systems
<Trey Kaufman MD - Last Filed: 07/20/24 21:58>
Review of Systems
All Other Systems: ROS reviewed and negative except as documented in HPI and ROS
Constitutional: Reports fatigue; Denies fever or chills
EENT: Denies sore throat or runny nose
Respiratory: Reports cough and trouble breathing
Cardiac: Denies chest pain or palpitations
ABD/GI: Denies abdominal pain, nausea, vomiting or diarrhea
: Denies dysuria, frequency or flank pain
Musculoskeletal: Reports joint pain and muscle pain; Denies edema, neck pain or back pain
Neurological: Reports weakness (Generalized); Denies dizzy, headache or numbness
Phy Exam
<Trey Kaufman MD - Last Filed: 07/20/24 21:58>
Physical Exam
Physical Exam:
General: Awake, alert, oriented x3; no acute distress
Head: Normocephalic, atraumatic
Eyes: Conjunctiva normal, pupils equal round reactive to light bilaterally
Throat: Airway intact, handling secretions, adentulous, tongue atraumatic
Neck: Trachea midline, no cervical spine tenderness
Lungs: Normal respiratory rate and normal work of breathing, normal pulse ox on room air; he does have faint expiratory wheezes at the apices bilaterally
Heart: Regular rate and rhythm, no murmurs, gallops, or rubs appreciated; no chest wall/rib tenderness
Abd: Soft, non distended, nontender; he has an old appearing minor bruise lateral right abdomen very small
Back: No signs of trauma to the back or flank
Neuro: Cranial nerves grossly intact, speech fluid, no gross motor or sensory deficits
Extremities:
Upper--right upper extremity patient has tenderness dorsum of the right wrist near the distal radius but he does have full range of motion of the right wrist and is able to make a fist; no tenderness of the elbow or shoulder; left upper extremity
atraumatic and nontender; good pulses bilaterally
Lower--patient has some prepatellar tenderness in the right knee but is able to move through full range of motion; he has no tenderness of the right hip but has some pain with extremes of flexion in the right groin; left lower extremity atraumatic
and nontender; good pulses bilateral
Scores
<Trey Kaufman MD - Last Filed: 07/20/24 21:58>
Heart Failure Risk
Heart Failure Risk Score: Not Applicable
Heart Score for Chest Pain Patients
STEMI patient?: Not applicable
Withdrawal Assessment of Alcohol
Withdrawal Assessment Completed?: Not applicable
Course
<Charo Solis, LEMON GROWER - Last Filed: 07/20/24 15:22>
Orders/Labs/Results
Orders:
Orders
07/20/24 15:07
Electrocardiogram (*1) Urgent
Reason for Study: Shortness of Breath
EKG- Treatment ONCE
07/20/24 15:20
Add On- LAB Urgent
Tests Added?: BNP
07/20/24 15:21
CR Chest - 2 Views Urgent
Comment:
Reason For Exam: Shortness of breath, cough
07/20/24 15:36
COVID-19 Antigen Urgent
Source: Nasal Swab
Complete Blood Count/With Diff Urgent
Comprehensive Metabolic Panel Urgent
Monotest Urgent
Comment: add on per Trey Kaufman
NT-proBNP Urgent
Comment: ADD ON
Troponin I Urgent
07/20/24 19:26
Add On- LAB Urgent
Tests Added?: monotest
07/20/24 19:38
CR Knee- Right 4 Or More View* Urgent
Comment:
Reason For Exam: right knee pain s/p fall
CR Pelvis Comp Min 3 Views Urgent
Comment:
Reason For Exam: right groin pain s/p fall
CR Wrist - Right Min 3 Views Urgent
Comment:
Reason For Exam: wrist pain s/p fall
07/20/24 19:48
Influenza A+B Rapid Molecular Urgent
ROXANNE Source: Nasal Swab
Specimen Description:
RSV [Respiratory Syncytial Virus] Urgent
ROXANNE Source: Nasal Swab
Specimen Description:
Date Specimen was Collected: 07/20/24
Time Specimen was Collected: 19:36
07/20/24 20:20
Urinalysis Reflex To Culture Urgent
Date Specimen was Collected: 07/20/24
Time Specimen was Collected: 20:16
Urine Microscopic Reflex Cult Urgent
Urine Culture Urgent
ROXANNE Source: U
Specimen Description:
Date Specimen was Collected: 07/20/24
Time Specimen was Collected: 20:16
07/20/24 21:54
CefTRIAXone [Rocephin] 1,000 mg IV NOW STA
07/20/24 21:55
Case Management Consult ONCE
Case Management Consult: Fdc Placement
Pt Eval And Treat Routine
Activity Level: With Assistance
Abnormal Lab Results
07/20/24 07/20/24
15:36 20:20
RBC 4.23 L 10^6/uL
(4.70-6.10)
Hct 37.9 L %
(39.0-52.0)
Abs Immat Gran (auto) 0.1 H 10^3/uL
(0-0.05)
Absolute Monos (auto) 1.0 H 10^3/uL
(0.1-0.6)
Immature Gran % 0.6 H %
(0-0.5)
Lymphocytes % 15.5 L %
(20.5-51.1)
Monocytes % 10.7 H %
(1.7-9.3)
Carbon Dioxide 21 L mmol/L
(22-30)
BUN 25 H mg/dl
(9-20)
Glucose 113 H mg/dl
(70-99)
Alkaline Phosphatase 165 H U/L
(38-126)
Ur Occult Blood Reflex Trace A
(Negative)
Leukocyte Esterase Rfl 2+ A
(Negative)
Urine WBC (Reflex) 60-70 A /HPF
(0-5)
Urine Bacteria (Reflex) Many A
(Negative)
Urine Albumin (Reflex) 1+ A
(Neg - Trace)
07/20/24 15:36
07/20/24 15:36
Vital Signs
Initial and Last Documented VS:
Initial Vital Signs
Temp Pulse Resp BP Pulse Ox
36.5 C 74 18 135/79 98
07/20/24 15:01 07/20/24 15:01 07/20/24 15:01 07/20/24 15:01 07/20/24 15:01
Last Documented Vital Signs
Temp Pulse Resp BP Pulse Ox
36.5 C 87 17 133/92 96
07/20/24 15:01 07/20/24 20:45 07/20/24 20:45 07/20/24 20:19 07/20/24 20:45
<Trey Kaufman MD - Last Filed: 07/20/24 21:58>
Orders/Labs/Results
Orders:
Orders
07/20/24 15:07
Electrocardiogram (*1) Urgent
Reason for Study: Shortness of Breath
EKG- Treatment ONCE
07/20/24 15:20
Add On- LAB Urgent
Tests Added?: BNP
07/20/24 15:21
CR Chest - 2 Views Urgent
Comment:
Reason For Exam: Shortness of breath, cough
07/20/24 15:36
COVID-19 Antigen Urgent
Source: Nasal Swab
Complete Blood Count/With Diff Urgent
Comprehensive Metabolic Panel Urgent
Monotest Urgent
Comment: add on per Trey Kaufman
NT-proBNP Urgent
Comment: ADD ON
Troponin I Urgent
07/20/24 19:26
Add On- LAB Urgent
Tests Added?: monotest
07/20/24 19:38
CR Knee- Right 4 Or More View* Urgent
Comment:
Reason For Exam: right knee pain s/p fall
CR Pelvis Comp Min 3 Views Urgent
Comment:
Reason For Exam: right groin pain s/p fall
CR Wrist - Right Min 3 Views Urgent
Comment:
Reason For Exam: wrist pain s/p fall
07/20/24 19:48
Influenza A+B Rapid Molecular Urgent
ROXANNE Source: Nasal Swab
Specimen Description:
RSV [Respiratory Syncytial Virus] Urgent
ROXANNE Source: Nasal Swab
Specimen Description:
Date Specimen was Collected: 07/20/24
Time Specimen was Collected: 19:36
07/20/24 20:20
Urinalysis Reflex To Culture Urgent
Date Specimen was Collected: 07/20/24
Time Specimen was Collected: 20:16
Urine Microscopic Reflex Cult Urgent
Urine Culture Urgent
ROXANNE Source: U
Specimen Description:
Date Specimen was Collected: 07/20/24
Time Specimen was Collected: 20:16
07/20/24 21:54
CefTRIAXone [Rocephin] 1,000 mg IV NOW STA
07/20/24 21:55
Case Management Consult ONCE
Case Management Consult: Fdc Placement
Pt Eval And Treat Routine
Activity Level: With Assistance
Abnormal Lab Results
07/20/24 07/20/24
15:36 20:20
RBC 4.23 L 10^6/uL
(4.70-6.10)
Hct 37.9 L %
(39.0-52.0)
Abs Immat Gran (auto) 0.1 H 10^3/uL
(0-0.05)
Absolute Monos (auto) 1.0 H 10^3/uL
(0.1-0.6)
Immature Gran % 0.6 H %
(0-0.5)
Lymphocytes % 15.5 L %
(20.5-51.1)
Monocytes % 10.7 H %
(1.7-9.3)
Carbon Dioxide 21 L mmol/L
(22-30)
BUN 25 H mg/dl
(9-20)
Glucose 113 H mg/dl
(70-99)
Alkaline Phosphatase 165 H U/L
(38-126)
Ur Occult Blood Reflex Trace A
(Negative)
Leukocyte Esterase Rfl 2+ A
(Negative)
Urine WBC (Reflex) 60-70 A /HPF
(0-5)
Urine Bacteria (Reflex) Many A
(Negative)
Urine Albumin (Reflex) 1+ A
(Neg - Trace)
07/20/24 15:36
07/20/24 15:36
Vital Signs
Initial and Last Documented VS:
Initial Vital Signs
Temp Pulse Resp BP Pulse Ox
36.5 C 74 18 135/79 98
07/20/24 15:01 07/20/24 15:01 07/20/24 15:01 07/20/24 15:01 07/20/24 15:01
Last Documented Vital Signs
Temp Pulse Resp BP Pulse Ox
36.5 C 87 17 133/92 96
07/20/24 15:01 07/20/24 20:45 07/20/24 20:45 07/20/24 20:19 07/20/24 20:45
<Trey Kaufman MD - Last Filed: 07/20/24 21:58>
MDM/Problems Addressed
Differential Diagnosis Includes:
Weakness, myalgias/arthralgias, cough: Viral syndrome, pneumonia, anemia, electrolyte derangement
Wrist/knee/groin pain: Fracture, muscle strain, contusion
MDM/Problems Addressed:
89-year-old male presents for evaluation of generalized weakness, myalgias/arthralgias, cough for the past few weeks. Due to the symptoms he had a minor fall a little over a week ago and he is complaining of some pain in the right wrist, knee,
groin since. Vitals and exam as above. He was seen in triage and labs were sent off including a CBC and a CMP�no clinically significant abnormalities. He had a troponin sent off despite denying any chest pain�this was undetectable. His EKG
showed a sinus rhythm. His proBNP is 255. He had negative COVID swab as well as a monotest which was negative. Added influenza and RSV. Will check chest x-ray, wrist x-ray, knee and pelvic x-ray. Treat with Tylenol. Reassess after the above.
Flu and RSV negative. Chest x-ray as well as orthopedic x-rays reviewed by me no acute disease. His urinalysis had bacteria and pyuria but many squamous cells and mucus suggesting significant contamination�urine culture sent off. Given no other
clear source for his weakness will cover for UTI despite no reported urinary symptoms. He currently lives alone according to his daughter and with his significant weakness here (could not even sit up in bed without significant assistance) will plan
to admit for physical therapy evaluation and case management consultation with an ultimate plan for placement in rehab. Patient and daughter are agreeable. Discussed with hospitalist.
<Trey Kaufman MD - Last Filed: 07/20/24 21:58>
*Radiology
Radiology exam reviewed: preliminary read by ED provider and radiology read reviewed
*Pulse Oximetry
Patient hypoxic: no
*EKG
Interpreted by ED Provider?: Yes
Heart Rate: 68
Rate: normal
Rhythm: sinus
[place]: normal axis
Interval: normal interval
QRS Pattern: low voltage
Ischemia: no ischemia
*Critical Care Note
Total Time (30-74mins, 75-104mins- exclusive of procedures): Not Applicable
Data Reviewed
Source: patient and family
<Trey Kaufman MD - Last Filed: 07/20/24 21:58>
Patient Management
Social determinants of health affecting care: Living situation (Lives by himself and now having frequent falls and severe weakness)
Discussion with other providers: Hospitalist (Discussed with hospitalist)
Escalation/DeEscalation of care consider admission/obs:
Admission indicated
ED Attending Note
<Charo Solis LEMON GROWER - Last Filed: 07/20/24 15:22>
-
Portions of this chart may have been created with voice recognition software.� Occasional wrong word or��sound alike� substitutions may have occurred due to the inherent limitations of voice recognition software.
Discharge Plan
Departure
Patient Disposition: Admit
Date of Disposition: 07/20/24
Time of Disposition: 21:55
Admit to doctor: Yahir
Presentation/result/management discussed w/ accepting MD/DO: Hospitalist
Discharge Problem:
Frequent falls, Generalized weakness, Acute UTI
Prescriptions:
No Action
amlodipine 2.5 MG tablet
2.5 mg PO DAILY
aspirin 81 MG tablet,chewable
81 mg PO DAILY
finasteride 5 MG tablet
5 mg PO HS
rosuvastatin 10 MG tablet
10 mg PO QPM
albuterol sulfate 90 mcg/actuation aerosol powdr breath activated
2 inh inhalation Q4H PRN (Reason: shortness of breath) Qty: 1 0RF
famotidine 20 mg Tablet
20 mg PO PRN PRN (Reason: GERD)
silodosin 8 mg Capsule
8 mg PO HS
metoprolol succinate 25 mg Tablet Extended Release 24 Hr
25 mg PO DAILY
Referrals:
Ramirez Ruvalcaba DO [Family Provider] -
Interventions
Interventions:
*Risk Screen - Suicide Last Done: 07/20/24 20:25
*General Assessment Last Done: 07/20/24 20:25
*Neglect/Abuse Screening Last Done: 07/20/24 20:25
ED- Fall Risk Assessment Last Done: 07/20/24 20:25
*ED COVID-19 Vaccine History Last Done: 07/20/24 20:25
ED- Cardiac Assessment Last Done: 07/20/24 20:25
ED- Neurological Assessment Last Done: 07/20/24 20:25
ED- Pulmonary Assessment Last Done: 07/20/24 20:25
Discharge Date and Time
Print Language: NORWEGIAN
[2024-07-20 15:52] LABS: % Basophils 0.6 % (0-2); % Eosinophils 1.6 % (0-6); % Immature Granulocytes 0.6 % (0-0.5); % Lymphocytes 15.5 % (20.5-51.1); % Monocytes 10.7 % (1.7-9.3); Absolute Basophils 0.1 10^3/uL (0-0.2); Absolute Eosinophils 0.1 10^3/uL (0-0.7); Absolute Immature Granulocytes 0.1 10^3/uL (0-0.05); Absolute Lymphocytes 1.4 10^3/uL (1.2-3.4); Absolute Neutrophils 6.3 10^3/uL (1.4-6.5); Hematocrit 37.9 % (39.0-52.0); Hemoglobin 13.1 g/dL (13.0-18.0); Mean Corp Hgb Conc. 34.6 g/dL (33.0-37.0); Mean Corpuscular Volume 89.6 fL (80.0-94.0); Mean Platelet Volume 9.7 fL (7.4-10.4); Nucleated Red Blood Cells % 0 % (-); Platelet Count 375 10^3/uL (130-400); Red Blood Cell Count 4.23 10^6/uL (4.70-6.10); Red Cell Dist. Width 13.1 % (11.5-14.5); White Blood Cell Count 8.9 10^3/uL (4.8-10.8)
[2024-07-20 15:59] LABS: COVID-19 Antigen Negative (Negative)
[2024-07-20 16:09] LABS: ALT (SGPT) 20 U/L (0-50); AST (SGOT) 29 U/L (17-59); Albumin 3.7 g/dl (3.5-5.0); Alkaline Phosphatase 165 U/L (38-126); Blood Urea Nitrogen 25 mg/dl (9-20); Calcium 9.3 mg/dl (8.4-10.2); Carbon Dioxide 21 mmol/L (22-30); Chloride 104 mmol/L (98-107); Glucose 113 mg/dl (70-99); Potassium 4.3 mmol/L (3.5-5.1); Sodium 136 mmol/L (135-145); Total Bilirubin 1.3 mg/dl (0.2-1.3); Total Protein 6.9 g/dl (6.3-8.2); eGFR > 60.00
[2024-07-20 16:20] LABS: NT-proBNP 255 pg/ml; Troponin I < 0.012 ng/ml
[2024-07-20 19:40] LABS: Monotest Negative (Negative)
[2024-07-20 20:19] VITALS: BP 133/92
[2024-07-20 20:25] VITALS: BMI 34.8
[2024-07-20 20:27] LABS: Urine Albumin 1+ (Neg - Trace); Urine Bilirubin Negative (Negative); Urine Character Clear (Clear); Urine Color Yellow; Urine Glucose Negative (Negative); Urine Ketone Negative (Negative); Urine Leukocyte 2+ (Negative); Urine Nitrite Negative (Negative); Urine Occult Blood Trace (Negative); Urine Urobilinogen Negative (Neg - 1+)
[2024-07-20 20:33] LABS: Urine Squamous Cell >30 /LPF (Few)
[2024-07-20 20:34] LABS: Urine Bacteria Many (Negative); Urine Mucus Few; Urine Red Blood Cell 0-2 /HPF (0-2); Urine White Cell 60-70 /HPF (0-5)
[2024-07-20] MEDS: TYLENOL 1000 MG PO (22:19)
[2024-07-20] MEDS: ROCEPHIN 1000 MG IV (22:22)
[2024-07-20 22:36] VITALS: BP 128/69
[2024-07-20 23:00] VITALS: BP 132/62
[2024-07-21] VITALS (7 sets, daily range): BP systolic 101–152; BP diastolic 49–89; PULSE 83–84; O2SAT 94–97; BMI 34.0
--- NOTE | 2024-07-21 00:35 | PTCARENOTE ---
Pt arrived to unit @ 0035 via stretcher was a insole tack puller hand in bed. Pt adm as m/s, vss. Educated pt about reporting care concerns. pt with attens on per pt request. RN COMPLETED ADMISSION DOCUMENTATION
--- NOTE | 2024-07-21 01:09 | HPS.HSE ---
Family Physician
-
Family Physician: Ramirez Ruvalcaba, DO
Chief Complaint
-
Late Entry - Patient seen and examined on 07/20/24 @ 10:30 PM.
Weakness, Joint Pain
History of Present Illness
Patient is an 89y M with PMH significant for ASCVD, hypertension and BPH who presents to ED complaining of diffuse pain / joint pain, weakness and fatigue. History obtained from patient and his family at the bedside. Patient describes
long-standing issues with weakness and diffuse pain in the hands, shoulders, etc. States that symptoms have been going on for 'a while'. He had a fall at home one week ago without any evident injury. No head trauma or LOC, etc. He required
assistance from his family to get up, but did not seek medical attention at that time. Family states that he has seemed more weak since that fall. Patient complains that his legs 'give out' is he tries to stand or walk.
He complains of joint pains in the R hand > L hand, R shoulder, hips, knees, etc.
Medical History
Past Medical History
Past Medical History: Reports Other
Additional Past Medical History:
ASCVD
Hypertension
BPH
Past Surgical History: Reports Other
Additional Past Surgical History:
PTCA with Stents
TURP (x 2 - most recent was 02/2024)
Social History
Tobacco: Former Smoker (Quit smoking about 40 years ago.)
Alcohol: None
Family History
Family History: Not pertinent
Allergies / Home Medications
Allergies reflects when Allergies were last updated in [email or web address].
Home Medications with original date entered in [email or web address]
Allergy/Medication List:
Allergies
Allergy/AdvReac Type Severity Reaction Status Date / Time
Penicillins Allergy Unknown Verified 03/03/24 08:20
Home Medications
amlodipine 2.5 mg tablet 2.5 mg PO DAILY 08/28/21
aspirin 81 mg chewable tablet 81 mg PO DAILY 08/28/21
rosuvastatin 10 mg tablet 10 mg PO DAILY 08/28/21
famotidine 20 mg tablet 20 mg PO DAILYPRN PRN GERD 02/26/24
albuterol sulfate 90 mcg/actuation breath activated powder inhaler 2 inh inhalation R Q4HPRN PRN shortness of breath 07/20/24
lisinopril 5 mg tablet 5 mg PO DAILY 07/20/24
mirabegron 50 mg tablet,extended release 24 hr (Myrbetriq) 50 mg PO HS 07/20/24
Review of Systems
-
History Source: Patient and Family
A 12 point ROS was completed and negative except as noted: Yes
Constitutional: Reports Fatigue; Denies Fever or Chills
EENT: Denies Sore Throat
Respiratory: Denies Cough or Trouble Breathing
Cardiac: Denies Chest Pain or Palpitations
Abdomen/GI: Denies Abdominal Pain, Nausea, Vomiting, Diarrhea or Anorexia
: Denies Dysuria, Frequency or Flank Pain
Musculoskeletal: Reports Joint Pain and Joint Swelling; Denies Edema
Neurological: Reports Weakness; Denies Dizzy or Headache
Psych: Denies Depression or Anxiety
Physical Exam
Vital Signs
Vital Signs
Temp Pulse Resp BP Pulse Ox
97.7 F 79 14 139/78 95
07/21/24 00:30 07/21/24 00:30 07/21/24 00:30 07/21/24 00:30 07/21/24 00:30
Physical Exam
General: Other (89y M in no acute distress.)
HEENT: Moist mucous membranes and PERRLA
Respiratory: Clear; No Wheezes, Rales or Rhonchi
Cardiac: S1/S2, Regular Rhythm and Murmur (II/ LAKE)
GI: Soft, Non Tender, Non Distended and Normal Bowel Sounds
Musculoskeletal: No Clubbing, No Cyanosis, No Edema and Other (No focal joint tenderness, erythema, etc.)
Neuro: AO x 3 and Nonfocal/grossly intact
Laboratory Results
-
Laboratory Results
Total Bilirubin 1.3 mg/dl (0.2-1.3) 07/20/24 15:36
AST 29 U/L (17-59) 07/20/24 15:36
ALT 20 U/L (0-50) 07/20/24 15:36
Alkaline Phosphatase 165 U/L (38-126) H 07/20/24 15:36
Troponin I < 0.012 ng/ml 07/20/24 15:36
Impression/Plan
-
A/P: Patient is an 89y M with PMH significant for ASCVD, HTN and BPH who presents to ED complaining of weakness, joint pains.
Generalized Weakness
Ambulatory Dysfunction
Polyarthralgia
- Observe overnight for further evaluation and treatment.
- No evidence of any acute process on work-up thus far.
- PT / OT / CM evaluations.
- Check ESR, uric acid, etc for evidence of inflammatory polyarthropathy.
- Follow for any new / worsening symptoms.
Possible UTI
- UA suggests UTI, but no reported urinary symptoms (though patient does have chronic LUTS due to prostate disease).
- Continue ceftriaxone for now pending culture data.
ASCVD
- Stable. No chest pain, dyspnea, etc.
- Continue current CV med regimen including ASA.
- Hold statin acutely - though doubt this is related to his joint discomfort / weakness.
Benign Hypertension
- Stable. Continue BP med regimen with holding parameters.
BPH
- Stable. Continued LUTS despite recent TURP.
- Bladder scan protocol.
DVT Prophylaxis: Subcut Heparin
Code Status: Full
[2024-07-21 07:09] LABS: Hematocrit 35.5 % (39.0-52.0); Hemoglobin 12.3 g/dL (13.0-18.0); Mean Corp Hgb Conc. 34.6 g/dL (33.0-37.0); Mean Corpuscular Hgb 30.8 pg (27.0-31.0); Mean Corpuscular Volume 88.8 fL (80.0-94.0); Mean Platelet Volume 9.6 fL (7.4-10.4); Platelet Count 307 10^3/uL (130-400); White Blood Cell Count 8.6 10^3/uL (4.8-10.8)
[2024-07-21 08:11] LABS: ALT (SGPT) 17 U/L (0-50); AST (SGOT) 23 U/L (17-59); Albumin 3.1 g/dl (3.5-5.0); Alkaline Phosphatase 140 U/L (38-126); Blood Urea Nitrogen 21 mg/dl (9-20); Calcium 8.8 mg/dl (8.4-10.2); Carbon Dioxide 21 mmol/L (22-30); Chloride 108 mmol/L (98-107); Creatine Phosphokinase 38 U/L (55-170); Estimated Creatinine Clearance 51 ml/min; Glucose 105 mg/dl (70-99); Potassium 3.9 mmol/L (3.5-5.1); Sodium 139 mmol/L (135-145); Uric Acid 6.6 mg/dl (3.5-8.5); eGFR > 60.00
[2024-07-21 08:58] LABS: TSH Reflex To Free T4 1.37 uIU/ml (0.47-4.68)
[2024-07-21 09:17] LABS: Erythrocyte Sed Rate 46 mm/hour (0-20)
--- NOTE | 2024-07-21 09:37 | W.PN.HOSP.TC ---
Today's Communication/Plan
-
Blood cultures X2
Start steroid therapy
Assessment / Plan
Assessment / Plan
Physical Exam
General: Other (89y M in no acute distress.)
HEENT: Moist mucous membranes and PERRLA
Respiratory: Clear; No Wheezes, Rales or Rhonchi
Cardiac: S1/S2, Regular Rhythm and Murmur (II/ LAKE)
GI: Soft, Non Tender, Non Distended and Normal Bowel Sounds
Musculoskeletal: No Clubbing, No Cyanosis, No Edema and Other (No focal joint tenderness, erythema, etc.)
Neuro: AO x 3 and Nonfocal/grossly intact
Patient is an 89y M with PMH significant for ASCVD, HTN and BPH who presents to ED complaining of weakness, joint pains.
Generalized Weakness
Ambulatory Dysfunction
Polyarthralgia
Muscle tenderness
Elevated inflammatory markers
Suspect acute polymyalgia rheumatica
Will do blood culture X2 then start on Steroid because he is very uncomfortable
- PT / OT / CM evaluations.
Possible UTI
- UA suggests UTI, but no reported urinary symptoms (though patient does have chronic LUTS due to prostate disease).
- Continue ceftriaxone for now pending culture data.
ASCVD
- Stable. No chest pain, dyspnea, etc.
- Continue current CV med regimen including ASA.
- Hold statin acutely - though doubt this is related to his joint discomfort / weakness.
Benign Hypertension
- Stable. Continue BP med regimen with holding parameters.
BPH
- Stable. Continued LUTS despite recent TURP.
- Bladder scan protocol.
DVT Prophylaxis: Subcut Heparin
Code Status: Full
Total time spent to see the patient, examine the patient, review data and lab results, discuss treatment plan with patient and nursing staff around 55 minutes
Anticipated Discharge: 24 - 48 hours
Subjective/Interval History
-
Date of Service: July 21, 2024
Complains of aches and muscle tenderness
Objective Data
-
Labs:
Laboratory Results
07/21/24
06:43
WBC 8.6
Hgb 12.3 L
Hct 35.5 L
Plt Count 307
Sodium 139
Potassium 3.9
Chloride 108 H
Carbon Dioxide 21 L
BUN 21 H
Creatinine 1.0
Glucose 105 H
Calcium 8.8
Total Bilirubin 1.0
AST 23
ALT 17
Alkaline Phosphatase 140 H
Vital Signs:
Vital Signs
Temp Pulse Resp BP Pulse Ox
97.5 F 85 19 152/88 97
07/21/24 07:05 07/21/24 07:05 07/21/24 07:05 07/21/24 07:05 07/21/24 07:05
[2024-07-21] MEDS: ZESTRIL 5 MG PO (09:42)
[2024-07-21] MEDS: TYLENOL 1000 MG PO ×3 (09:42→21:33)
[2024-07-21] MEDS: LOW STRENGTH ASPIRIN 81 MG PO (09:43)
[2024-07-21] MEDS: NORVASC 2.5 MG PO (09:43)
[2024-07-21] MEDS: HEPARIN 5000 UNITS SC ×2 (09:45→21:34)
[2024-07-21] MEDS: SOLU-MEDROL PF 60 MG IV (10:20)
--- NOTE | 2024-07-21 14:40 | PTCARENOTE ---
patient has been sitting oob most of day, reports generalized generalized aches and muscle stiffness, reports able to raise right arm more compared to previous days, tolerating diet, vss, will continue to monitor.
[2024-07-21] MEDS: ROCEPHIN 1000 MG IV (21:34)
[2024-07-21] MEDS: STERILE WATER FOR INJECTION 10 ML IV (21:35)
[2024-07-22 06:00] VITALS: BMI 33.9
[2024-07-22 07:35] VITALS: BP 129/68
[2024-07-22] MEDS: ZESTRIL 5 MG PO (07:51)
[2024-07-22] MEDS: TYLENOL 1000 MG PO ×3 (07:52→21:04)
[2024-07-22] MEDS: SOLU-MEDROL PF 60 MG IV (07:52)
[2024-07-22] MEDS: HEPARIN 5000 UNITS SC ×2 (07:56→21:04)
[2024-07-22] MEDS: NORVASC 2.5 MG PO (07:56)
[2024-07-22] MEDS: LOW STRENGTH ASPIRIN 81 MG PO (07:58)
--- NOTE | 2024-07-22 09:29 | W.PN.HOSP.TC ---
Today's Communication/Plan
-
c/w IV steroid for today then change to oral prednisone on 07/23
Stop Rocephin
Will need rehab
Assessment / Plan
Assessment / Plan
Physical Exam
General: Other (89y M in no acute distress.)
HEENT: Moist mucous membranes and PERRLA
Respiratory: Clear; No Wheezes, Rales or Rhonchi
Cardiac: S1/S2, Regular Rhythm and Murmur (II/ LAKE)
GI: Soft, Non Tender, Non Distended and Normal Bowel Sounds
Musculoskeletal: No Clubbing, No Cyanosis, No Edema , less join/ muscle tenderness on palpation.
Neuro: AO x 3 and Nonfocal/grossly intact
Patient is an 89y M with PMH significant for ASCVD, HTN and BPH who presents to ED complaining of weakness, joint pains.
# Highly suspect presentation of acute polymyalgia rheumatica
He presented with generalized Weakness, Ambulatory Dysfunction, Polyarthralgia, diffuse muscle tenderness
Elevated inflammatory markers
Negative blood culture, will c/w to follow
lack of signs of inflammatory arthritides on clinical exam and on x ray of wrist/knee. .
- PT / OT / CM evaluations.
Need to continue on high-dose oral prednisone starting 07/23 then very slow taper. Discussed with his daughter, recommend outpatient rheumatology follow-up.
# He reported chronic history of NF frequent right lower extremity spasms. Likely secondary to radiculopathy ( pinched nerve) . Patient reported that he had herniated disc many years ago in the past. Sensory exam is normal.
rehab can help. He said no pain with it. Recommend OP follow up with ortho.
# Not UTI
- Urine culture is negative
Stopped ceftriaxone.
ASCVD
- Stable. No chest pain, dyspnea, etc.
- Continue current CV med regimen including ASA.
- ok tor resume statin acutely.
Benign Hypertension
- Stable. Continue BP med regimen with holding parameters.
BPH
- Stable. Continued LUTS despite recent TURP.
- Bladder scan protocol.
DVT Prophylaxis: Subcut Heparin
Code Status: Full
Total time spent to see the patient, examine the patient, review data and lab results, discuss treatment plan with patient, daughter and nursing staff around 55 minutes
Anticipated Discharge: Within 24 hours
Subjective/Interval History
-
Date of Service: July 22, 2024
He feels better
less aches in joints and shoulder
Wanted me to commend about his infrequent right leg spasms
Objective Data
-
Vital Signs:
Vital Signs
Temp Pulse Resp BP Pulse Ox
98.3 F 75 18 129/68 95
07/22/24 07:35 07/22/24 07:35 07/22/24 07:35 07/22/24 07:35 07/22/24 07:35
I&O
07/21/24 07/22/24 07/23/24
06:59 06:59 06:59
Intake Total 1440 / 1440
Output Total 250 / 250
Balance 1190 / 1190
[2024-07-22] MEDS: PROTONIX 40 MG PO (11:01)
[2024-07-22 14:46] VITALS: BP 121/67; PULSE 79; O2SAT 95
[2024-07-22 15:32] VITALS: BP 121/67
[2024-07-22] MEDS: CRESTOR 10 MG PO (17:20)
[2024-07-23 00:05] VITALS: BP 134/67
[2024-07-23 06:00] VITALS: BMI 33.2
[2024-07-23 06:49] LABS: Hematocrit 35.2 % (39.0-52.0); Hemoglobin 11.9 g/dL (13.0-18.0); Mean Corp Hgb Conc. 33.8 g/dL (33.0-37.0); Mean Corpuscular Hgb 30.4 pg (27.0-31.0); Mean Corpuscular Volume 89.8 fL (80.0-94.0); Mean Platelet Volume 9.8 fL (7.4-10.4); Platelet Count 359 10^3/uL (130-400); Red Blood Cell Count 3.92 10^6/uL (4.70-6.10); Red Cell Dist. Width 13.3 % (11.5-14.5)
[2024-07-23 07:05] VITALS: BP 139/73
[2024-07-23 07:54] LABS: Blood Urea Nitrogen 34 mg/dl (9-20); Calcium 9.4 mg/dl (8.4-10.2); Carbon Dioxide 18 mmol/L (22-30); Chloride 107 mmol/L (98-107); Estimated Creatinine Clearance 45 ml/min; Glucose 138 mg/dl (70-99); Potassium 4.6 mmol/L (3.5-5.1); Sodium 136 mmol/L (135-145); eGFR > 60.00
[2024-07-23] MEDS: DELTASONE 60 MG PO (08:57)
[2024-07-23] MEDS: NORVASC 2.5 MG PO (08:58)
[2024-07-23] MEDS: TYLENOL 1000 MG PO ×3 (08:58→21:26)
[2024-07-23] MEDS: LOW STRENGTH ASPIRIN 81 MG PO (08:58)
[2024-07-23] MEDS: PROTONIX 40 MG PO (08:58)
[2024-07-23] MEDS: ZESTRIL 5 MG PO (08:58)
[2024-07-23] MEDS: HEPARIN 5000 UNITS SC ×2 (08:59→21:26)
--- NOTE | 2024-07-23 14:05 | W.PN.HOSP.TC ---
Today's Communication/Plan
-
DC planning
Assessment / Plan
Assessment / Plan
Patient is an 89y M with PMH significant for ASCVD, HTN and BPH who presents to ED complaining of weakness, joint pains.
# Based on the clinical features and symptomatology highly suspect presentation of acute polymyalgia rheumatica
He presented with generalized Weakness, Ambulatory Dysfunction, Polyarthralgia, diffuse muscle tenderness. See my subjective history from today
Elevated inflammatory markers
Negative blood culture
lack of signs of inflammatory arthritides on clinical exam and on x ray of wrist/knee. .
Trial of steroids as shown improvement in the symptoms.
No clinical symptomatology to suggest giant cell arteritis currently.
So we will decrease the steroids to PM&R dose of 20 mg daily and a slow taper. He was made aware that he should follow-up with rheumatology. Patient on aspirin so we will add Protonix daily while on high-dose of steroids.
# Not UTI
- Urine culture is negative
Stopped ceftriaxone.
ASCVD
- Stable. No chest pain, dyspnea, etc.
- Continue current CV med regimen including ASA.
- ok to resume statin acutely.
Benign Hypertension
- Stable. Continue BP med regimen with holding parameters.
BPH
- Stable. Continued LUTS despite recent TURP.
- Bladder scan protocol.
DVT Prophylaxis: Subcut Heparin
Code Status: Full
DC to rehab when bed available. Medically stable.
Discussed with case management.
Discussed with the daughter and updated the clinical scenario and DC plan.
Total time of discharge 35 minutes
Anticipated Discharge: Today
Subjective/Interval History
-
Date of Service: July 23, 2024
Patient over the last several weeks was having neck pain going to the bilateral shoulders. He was also having pains more so in the right wrist and fingers.
It was getting very hard for him to pull himself up from lying to sitting to standing because of strength issues in the shoulder and some in general.
He was having stiffness when he gets up in the morning and shoulder joints in the neck and the wrist on the hands. Again not much in the hips but was having trouble with the right hip and the right knee pains.
He was not able to lift his arms up about the head. He was also noticing right hand with slight swelling which is improved ever since getting a steroids since admission. Also able to make fists better and stronger.
He also notices now that he is able to lift his arms up easier and able to transfer better from the bed.
Denies any lateral headache or vision issues. Denies any jaw claudication. No fevers or chills.
Objective Data
-
Labs:
Laboratory Results
07/23/24
06:27
WBC 20.0 H
Hgb 11.9 L
Hct 35.2 L
Plt Count 359
Sodium 136
Potassium 4.6
Chloride 107
Carbon Dioxide 18 L
BUN 34 H
Creatinine 1.1
Glucose 138 H
Calcium 9.4
Vital Signs:
Vital Signs
Temp Pulse Resp BP Pulse Ox
97.5 F 68 18 139/73 95
07/23/24 07:05 07/23/24 07:05 07/23/24 07:05 07/23/24 07:05 07/23/24 07:05
I&O
07/22/24 07/23/24 07/24/24
06:59 06:59 06:59
Intake Total 1440 / 1440 1600 / 1600
Output Total 250 / 250 450 / 450
Balance 1190 / 1190 1150 / 1150
Review of Systems
-
Constitutional: Denies Fever
EENT: Denies Sore Throat
Respiratory: Denies Trouble Breathing
Cardiac: Denies Chest Pain
Abdomen/GI: Denies Abdominal Pain, Nausea, Vomiting or Diarrhea
Genitourinary: Denies Dysuria
Neuro: Denies Dizzy
Physical Exam
-
General: Comfortable
HEENT: Moist Mucous Membranes
Respiratory: Clear to Auscultation
Cardiac: Regular Rhythm and S1/S2; Negative Tachycardic
GI: Soft and Nontender
Musculoskeletal: No Edema and Other (No hand swelling today. No swollen hand joints)
Neuro: AO x 3 and No Motor Deficits; Negative Tremors, Slurred Speech or Facial Droop
Psych: Calm
Data Reviewed
-
Labs: Labs Reviewed by me (Suspect elevated white cell count secondary to steroids)
[2024-07-23 15:05] VITALS: BP 122/59
--- NOTE | 2024-07-23 17:14 | CM ---
Spoke with attending who stated that patient is medically stable for discharge. Met with patient and his daughter by speakerphone and they both stated that patient will not be able to go home as he lives alone and is weak. Reviewed PT. Auth would
need to be obtained, prior to transfer to a SNF. PT indicating home health. Patient's daughter stated that patient is on county waiver and receives 55 hours however does not utilize them all as he will only let family take care of him. Right now his
daughter is working chief librarian circulation department as his caregiver. She stated that she and patient would like for him to transition to an NH.
Advised patient's daughter that CM will call her back to obtain all information for assessment and discuss further, the LTC process. She was agreeable.
Placed a call back to patient's daughter however the phone rang and there was no answer or voice mail to leave message. CM will follow up with her tomorrow. Attending updated regarding situation as patient ready/stable for d/c.
Plan: Case management will continue to follow and assist with discharge planning. Patient and family are hopeful that patient can transfer right to LTC at discharge.
[2024-07-23] MEDS: CRESTOR 10 MG PO (17:33)
--- NOTE | 2024-07-23 18:00 | PTCARENOTE ---
Pt with discharge order. Communicated with CM regarding order- Family with concerns about Pt going home to live alone, looking into SNF placement. Spoke with daughter Mike during shift who stated Pt seeing to be congested and stating that she was
told by Pt that he was coughing. Pt not noted to cough throughout shift. Pt unable to cough phlem up to assess. VSS. Call curran within reach.
[2024-07-23 23:35] VITALS: BP 138/72
[2024-07-24 07:45] VITALS: BP 131/76
[2024-07-24] MEDS: PROTONIX 40 MG PO (09:19)
[2024-07-24] MEDS: LOW STRENGTH ASPIRIN 81 MG PO (09:19)
[2024-07-24] MEDS: TYLENOL 1000 MG PO ×3 (09:19→21:26)
[2024-07-24] MEDS: DELTASONE 20 MG PO (09:19)
[2024-07-24] MEDS: ZESTRIL 5 MG PO (09:20)
[2024-07-24] MEDS: NORVASC 2.5 MG PO (09:20)
[2024-07-24] MEDS: HEPARIN 5000 UNITS SC ×2 (09:22→21:27)
--- NOTE | 2024-07-24 09:59 | W.PN.HOSP.TC ---
Today's Communication/Plan
-
DC
Assessment / Plan
Assessment / Plan
Patient is an 89y M with PMH significant for ASCVD, HTN and BPH who presents to ED complaining of weakness, joint pains.
# Based on the clinical features and symptomatology highly suspect presentation of acute polymyalgia rheumatica
He presented with generalized Weakness, Ambulatory Dysfunction, Polyarthralgia, diffuse muscle tenderness. See my subjective history from yesterday
Elevated inflammatory markers
Negative blood culture
lack of signs of inflammatory arthritides on clinical exam and on x ray of wrist/knee. .
Trial of steroids as shown improvement in the symptoms.
No clinical symptomatology to suggest giant cell arteritis currently.
So we will decrease the steroids to PM&R dose of 20 mg daily and a slow taper. He was made aware that he should follow-up with rheumatology. Patient on aspirin so we will add Protonix daily while on high-dose of steroids.
# Not UTI
- Urine culture is negative
Stopped ceftriaxone.
ASCVD
- Stable. No chest pain, dyspnea, etc.
- Continue current CV med regimen including ASA.
- ok to resume statin acutely.
Benign Hypertension
- Stable. Continue BP med regimen with holding parameters.
BPH
- Stable. Continued LUTS despite recent TURP.
- Bladder scan protocol.
DVT Prophylaxis: Subcut Heparin
Code Status: Full
DC to rehab when bed available. Medically stable.
Discussed with case management.
Discussed with the daughter yesterday and updated the clinical scenario and DC plan.
Discussed with on-call yard coordinator Dr. Guzman-she is going to give him an early appointment and seen in office.
Total time of discharge 35 minutes
Anticipated Discharge: Today
Subjective/Interval History
-
Date of Service: July 24, 2024
Feeling improved with this general wellbeing and the strength every day. Easier to move now. Currently sitting in the chair. Voices no specific complaints.
Objective Data
-
Vital Signs:
Vital Signs
Temp Pulse Resp BP Pulse Ox
98.6 F 87 20 144/76 95
07/24/24 07:45 07/24/24 07:45 07/24/24 07:45 07/24/24 09:20 07/24/24 07:45
I&O
07/23/24 07/24/24 07/25/24
06:59 06:59 06:59
Intake Total 1600 / 1600 1200 / 1200
Output Total 450 / 450
Balance 1150 / 1150 1200 / 1200
Review of Systems
-
Constitutional: Denies Fever
EENT: Denies Sore Throat
Respiratory: Denies Cough or Trouble Breathing
Cardiac: Denies Chest Pain
Abdomen/GI: Denies Abdominal Pain, Nausea or Vomiting
Neuro: Denies Dizzy
Physical Exam
-
General: Comfortable
Respiratory: Non Labored Respirations; Negative Accessory Resp Muscle Use
Cardiac: Regular Rhythm and S1/S2
GI: Soft
Neuro: AO x 3
Psych: Calm; Negative Confused
[2024-07-24 14:23] VITALS: BP 136/1; PULSE 60; O2SAT 97
[2024-07-24 14:27] VITALS: BP 136/71; PULSE 67; O2SAT 97
--- NOTE | 2024-07-24 14:38 | W.DCSUMMARY ---
Addendum entered and electronically signed by Kodak Ace MD 07/28/24 18:26:
Date of discharge 07/27/2024
Patient was waiting for rehab initially and with improvement was dced home with home health. No new medical issues arouse during that peroid.
Original Note:
Discharge Summary
Discharge Data
Date of Admission: 07/22/24
Date of Discharge: 07/24/24
-
Pending Results: No
Hospital Course
Primary diagnosis:
Probable polymyalgia rheumatica
Secondary diagnosis:
Atherosclerotic cardiovascular disease
Benign prostatic hyperplasia
Hospital course:
Patient who lives alone presented with complaints of weakness and joint pains. For the past several weeks was having neck pain going to the bilateral shoulders. He was also having pains more so in the right wrist and fingers.
It was getting very hard for him to pull himself up from lying to sitting to standing because of strength issues in the shoulder and some in general.
He was having stiffness when he gets up in the morning and shoulder joints in the neck and the wrist on the hands. Again not much in the hips but was having trouble with the right hip and the right knee pains.
He was not able to lift his arms up about the head. He was also noticing right hand with slight swelling which is improved ever since getting a steroids since admission. Also able to make fists better and stronger.
He also notices now that he is able to lift his arms up easier and able to transfer better from the bed.
Denies any lateral headache or vision issues. Denies any jaw claudication. No fevers or chills. No clinical symptomatology suggestive of GCA at this current time.
Infectious workup were negative. No other acute obvious medical illness evident. Increased inflammatory markers including ESR of 46 and CRP of 45.
With improvement of symptoms on a therapeutic trial of steroids and keeping in with the constellation of his symptoms, polymyalgia rheumatica is probably the case.
Advised the patient's to see how he does and PM&R dose of prednisone 20 mg in the next 2 weeks and if continued improvement to continue for a month and think about tapering of the steroids. He was put on Protonix as well.
Discussed with on-call building and construction manager who is going to see him in office earlier than later.
He was seen by physical therapist and felt to he could benefit rehab and was discharged to rehab.
Discharge Plan
-
Patient Disposition: Fdc/SNF
Discharge Diagnosis/Procedures: Possible polymyalgia rheumatica
Diet: Regular
Activity: As tolerated
Driving Restrictions: Not until seen by your Dr
Bathing Restrictions: None
Other Services: PT and OT
Referrals:
Ramirez Ruvalcaba DO [Family Provider] -
Sapna Guzman MD [Consulting Staff] - in two weeks
Prescriptions:
New
prednisone 20 mg Tablet
20 mg PO DAILY Qty: 1 0RF
Rx Instructions:
Eval the continued response in 2 weeks.
Eval need for taper in 4 weeks
pantoprazole 40 mg Tablet,Delayed Release (Dr/Ec)
40 mg PO DAILY Qty: 1 0RF
Rx Instructions:
While on high-dose of steroids and aspirin
acetaminophen [Tylenol Extra Strength] 500 mg tablet
500 mg PO Q6H PRN (Reason: Pain) Qty: 1 0RF
Continued
amlodipine 2.5 MG tablet
2.5 mg PO DAILY
aspirin 81 MG tablet,chewable
81 mg PO DAILY
rosuvastatin 10 MG tablet
10 mg PO DAILY
lisinopril 5 mg Tablet
5 mg PO DAILY
mirabegron [Myrbetriq] 50 mg Tablet Extended Release 24 Hr
50 mg PO HS
albuterol sulfate 90 mcg/actuation aerosol powdr breath activated
2 inh inhalation R Q4HPRN PRN (Reason: shortness of breath)
Discontinued
famotidine 20 mg Tablet
20 mg PO DAILYPRN PRN (Reason: GERD)
Discharge Orders:
Discharge Patient (As Directed); Ordered 07/23/24
Ordered By: Kodak Ace
Discharge Date and Time
Print Language: DIVEHI
[2024-07-24 14:52] VITALS: BP 130/77
--- NOTE | 2024-07-24 16:27 | PTCARENOTE ---
patient improving with ambulation, has been sitting oob most of day in chair, tolerating diet, vss, will continue to monitor.
--- NOTE | 2024-07-24 16:59 | CM ---
military exchange wireless manager reviewed patient's chart and met with patient and patient states that he lives alone in a one story home, patient is independent with adl's and uses a cane or walker with ambulation, patient is current with [facility]N per patient. Case
order processing manager reached out to patient's daughterMike to review discharge plans as requested by patient. Patient daughter does patient's laundry and pays all bills for patient, plan per daughter is halfway facilty and she has selected [facility], [facility] and [facility], referrals sent.
Plan; Skilled placement per patient and daughter.
[2024-07-24] MEDS: CRESTOR 10 MG PO (17:07)
[2024-07-24 23:26] VITALS: BP 121/57
[2024-07-25 05:47] VITALS: BMI 33.0
[2024-07-25 07:00] VITALS: BP 161/76
[2024-07-25] MEDS: LOW STRENGTH ASPIRIN 81 MG PO (09:13)
[2024-07-25] MEDS: ZESTRIL 5 MG PO (09:13)
[2024-07-25] MEDS: PROTONIX 40 MG PO (09:13)
[2024-07-25] MEDS: DELTASONE 20 MG PO (09:14)
[2024-07-25] MEDS: TYLENOL 1000 MG PO ×3 (09:14→21:02)
[2024-07-25] MEDS: HEPARIN 5000 UNITS SC ×2 (09:14→21:02)
[2024-07-25] MEDS: NORVASC 2.5 MG PO (09:14)
--- NOTE | 2024-07-25 10:23 | CM ---
Received notification from CM director (message) that patient's daughter, Mike [phone]. Returned her call and she stated that she would rather, at this time, not have patient transfer directly to LTC and have him transfer to a SNF if he
receives approval through insurance and if he doesn't, return home with VN and waiver services.
Plan: Case management will continue to follow and assist with discharge planning. Most likely home with VN services and waiver program.
--- NOTE | 2024-07-25 12:25 | W.PN.HOSP.TC ---
Today's Communication/Plan
-
DC
Assessment / Plan
Assessment / Plan
Patient is an 89y M with PMH significant for ASCVD, HTN and BPH who presents to ED complaining of weakness, joint pains.
# Based on the clinical features and symptomatology highly suspect presentation of acute polymyalgia rheumatica
He presented with generalized Weakness, Ambulatory Dysfunction, Polyarthralgia, diffuse muscle tenderness. See my subjective history from yesterday
Elevated inflammatory markers
Negative blood culture
lack of signs of inflammatory arthritides on clinical exam and on x ray of wrist/knee. .
Trial of steroids as shown improvement in the symptoms.
No clinical symptomatology to suggest giant cell arteritis currently.
So we will decrease the steroids to PM&R dose of 20 mg daily and a slow taper. He was made aware that he should follow-up with rheumatology. Patient on aspirin so we will add Protonix daily while on high-dose of steroids.
# Not UTI
- Urine culture is negative
Stopped ceftriaxone.
ASCVD
- Stable. No chest pain, dyspnea, etc.
- Continue current CV med regimen including ASA.
- ok to resume statin acutely.
Benign Hypertension
- Stable. Continue BP med regimen with holding parameters.
BPH
- Stable. Continued LUTS despite recent TURP.
- Bladder scan protocol.
DVT Prophylaxis: Subcut Heparin
Code Status: Full
DC to rehab when bed available. Remains Medically stable.
Discussed with case management yesterday -she made referrals to rehabs
Total time of discharge 35 minutes
Anticipated Discharge: Today
Subjective/Interval History
-
Date of Service: July 25, 2024
No overnight events. Voices no new specific complaints.
Objective Data
-
Vital Signs:
Vital Signs
Temp Pulse Resp BP Pulse Ox
97.6 F 71 18 161/76 96
07/25/24 07:00 07/25/24 09:14 07/25/24 07:00 07/25/24 09:14 07/25/24 08:00
I&O
07/24/24 07/25/24 07/26/24
06:59 06:59 06:59
Intake Total 1200 / 1200 1380 / 1380
Balance 1200 / 1200 1380 / 1380
Review of Systems
-
Constitutional: Denies Fever
Respiratory: Denies Trouble Breathing
Cardiac: Denies Chest Pain
Abdomen/GI: Denies Abdominal Pain, Nausea or Vomiting
Neuro: Denies Dizzy
Physical Exam
-
General: No Apparent Distress
Respiratory: Non Labored Respirations; Negative Accessory Resp Muscle Use
Cardiac: Regular Rhythm and S1/S2
GI: Soft
Neuro: AO x 3
Psych: Calm
[2024-07-25 15:00] VITALS: BP 130/62
[2024-07-25] MEDS: CRESTOR 10 MG PO (17:10)
[2024-07-25 23:06] VITALS: BP 126/73
[2024-07-26 06:00] VITALS: BMI 33.6
[2024-07-26 07:21] VITALS: BP 152/75
[2024-07-26] MEDS: TYLENOL 1000 MG PO ×3 (08:14→20:49)
[2024-07-26] MEDS: LOW STRENGTH ASPIRIN 81 MG PO (08:15)
[2024-07-26] MEDS: HEPARIN 5000 UNITS SC ×2 (08:15→20:46)
[2024-07-26] MEDS: PROTONIX 40 MG PO (08:15)
[2024-07-26] MEDS: DELTASONE 20 MG PO (08:15)
[2024-07-26] MEDS: NORVASC 2.5 MG PO (08:17)
[2024-07-26] MEDS: ZESTRIL 5 MG PO (08:18)
--- NOTE | 2024-07-26 09:30 | W.PN.HOSP.TC ---
Today's Communication/Plan
-
DC
Assessment / Plan
Assessment / Plan
Patient is an 89y M with PMH significant for ASCVD, HTN and BPH who presents to ED complaining of weakness, joint pains.
# Based on the clinical features and symptomatology highly suspect presentation of acute polymyalgia rheumatica
He presented with generalized Weakness, Ambulatory Dysfunction, Polyarthralgia, diffuse muscle tenderness. See my subjective history from yesterday
Elevated inflammatory markers
Negative blood culture
lack of signs of inflammatory arthritides on clinical exam and on x ray of wrist/knee. .
Trial of steroids as shown improvement in the symptoms.
No clinical symptomatology to suggest giant cell arteritis currently.
So we will decrease the steroids to PM&R dose of 20 mg daily and a slow taper. He was made aware that he should follow-up with rheumatology. Patient on aspirin so we will add Protonix daily while on high-dose of steroids.
# Not UTI
- Urine culture is negative
Stopped ceftriaxone.
ASCVD
- Stable. No chest pain, dyspnea, etc.
- Continue current CV med regimen including ASA.
- ok to resume statin acutely.
Benign Hypertension
- Stable. Continue BP med regimen with holding parameters.
BPH
- Stable. Continued LUTS despite recent TURP.
- Bladder scan protocol.
DVT Prophylaxis: Subcut Heparin
Code Status: Full
DC to rehab when bed available. Remains Medically stable.
Anticipated Discharge: Today
Subjective/Interval History
-
Date of Service: July 26, 2024
No overnight events.
Objective Data
-
Vital Signs:
Vital Signs
Temp Pulse Resp BP Pulse Ox
97.9 F 60 16 152/75 95
07/26/24 07:21 07/26/24 08:18 07/26/24 07:21 07/26/24 08:18 01/19/25 07:21
I&O
07/25/24 07/26/24 07/27/24
06:59 06:59 06:59
Intake Total 1380 / 1380 1959
Balance 138 / 1379
Review of Systems
-
Respiratory: Denies Trouble Breathing
Cardiac: Denies Chest Pain
Abdomen/GI: Denies Abdominal Pain, Nausea or Vomiting
Neuro: Denies Dizzy
Physical Exam
-
Respiratory: Non Labored Respirations; Negative Accessory Resp Muscle Use
Cardiac: Regular Rhythm and S1/S2; Negative Tachycardic
Neuro: AO x 3
Psych: Calm
--- NOTE | 2024-07-26 14:52 | CM ---
Received message from RN that patient is medically cleared for discharge. Spoke with patient's daughter who stated that due to the weather she won't be able to leave her house to pick patient up. She was made aware that transportation can be
arranged for him. She stated that she is worried as there is no one who will be able to check on him tonight. Patient's daughter was made aware that patient is stable for discharge but will make attending aware of lack of ability to get support
tonight.
Attending updated.
Plan: Case management will continue to follow and assist with discharge planning. Home with [facility].
[2024-07-26 15:09] VITALS: BP 123/62
[2024-07-26] MEDS: CRESTOR 10 MG PO (17:34)
[2024-07-26 23:00] VITALS: BP 136/74
[2024-07-27 06:00] VITALS: BMI 33.5
[2024-07-27 07:34] VITALS: BP 170/74
[2024-07-27] MEDS: TYLENOL 1000 MG PO ×2 (07:47→15:41)
[2024-07-27] MEDS: PROTONIX 40 MG PO (07:48)
[2024-07-27] MEDS: DELTASONE 20 MG PO (07:48)
[2024-07-27] MEDS: ZESTRIL 5 MG PO (07:49)
[2024-07-27] MEDS: HEPARIN 5000 UNITS SC (07:49)
[2024-07-27] MEDS: LOW STRENGTH ASPIRIN 81 MG PO (07:49)
[2024-07-27] MEDS: NORVASC 2.5 MG PO (07:49)
--- NOTE | 2024-07-27 09:44 | W.PN.HOSP.TC ---
Today's Communication/Plan
-
DC
Assessment / Plan
Assessment / Plan
Patient is an 89y M with PMH significant for ASCVD, HTN and BPH who presents to ED complaining of weakness, joint pains.
# Based on the clinical features and symptomatology highly suspect presentation of acute polymyalgia rheumatica
He presented with generalized Weakness, Ambulatory Dysfunction, Polyarthralgia, diffuse muscle tenderness.
Elevated inflammatory markers
Negative blood culture
lack of signs of inflammatory arthritides on clinical exam and on x ray of wrist/knee. .
Trial of steroids as shown improvement in the symptoms. He continues with his improvement .
No clinical symptomatology to suggest giant cell arteritis currently.
So decreased the steroids to PM&R dose of 20 mg daily and a slow taper. He was made aware that he should follow-up with rheumatology. Patient on aspirin so we will add Protonix daily while on high-dose of steroids.
# Not UTI
- Urine culture is negative
Stopped ceftriaxone.
ASCVD
- Stable. No chest pain, dyspnea, etc.
- Continue current CV med regimen including ASA.
- cw statin .
Benign Hypertension
- Stable- mostly under goal. Continue BP med regimen with holding parameters.
BPH
- Stable. Continued LUTS despite recent TURP.
- Bladder scan protocol.
DVT Prophylaxis: Subcut Heparin
Code Status: Full
DC to rehab when bed available. Remains Medically stable.
Anticipated Discharge: Today
Subjective/Interval History
-
Date of Service: July 27, 2024
Continues with improvement. Better transfers out of bed. better strength in the shoulders.
Voicing no new symptoms.
His major concerns are about going home and being by himself. He is hoping to get into rehab.
Objective Data
-
Vital Signs:
Vital Signs
Temp Pulse Resp BP Pulse Ox
97.8 F 68 16 170/74 95
07/27/24 07:34 07/27/24 07:49 07/27/24 07:34 07/27/24 07:49 07/27/24 07:34
I&O
07/26/24 07/27/24 07/28/24
06:59 06:59 06:59
Intake Total 1959 720 / 720
Balance 1959 720 / 720
Review of Systems
-
Respiratory: Denies Trouble Breathing
Cardiac: Denies Chest Pain
Abdomen/GI: Denies Abdominal Pain, Nausea, Vomiting or Diarrhea
Neuro: Denies Dizzy
Physical Exam
-
General: No Apparent Distress
Respiratory: Clear to Auscultation and Non Labored Respirations; Negative Accessory Resp Muscle Use
Cardiac: Regular Rhythm and S1/S2; Negative Tachycardic
Neuro: AO x 3
Psych: Calm; Negative Confused
[2024-07-27 10:59] VITALS: BP 138/62; PULSE 64; O2SAT 97
--- NOTE | 2024-07-27 12:25 | CM ---
Addendum entered by CRYSTAL Lambert 07/27/24 16:16:
Spoke with patient's daughter who stated that she is on her way in to pick patient up. Referral was made to [facility].
Original Note:
Spoke with attending who stated that patient is medically stable today for discharge. Placed a call to patient's daughter Mike knowles. Left message that patient has been medically cleared for discharge and requested confirmation of p/u time. Met with
patient who stated that his daughter will be in this afternoon. He reviewed and signed IMM. It is now on chart.
Plan: Case management will continue to follow and assist with discharge planning. Home today.
[2024-07-27 15:05] VITALS: BP 130/67
--- NOTE | 2024-07-27 15:59 | VNURNOTE ---
Home Health Liaison spoke with patient's daughter Mike to discuss [facility] nurse/therapy, visits, schedule and homebound status. She is agreeable and understands that visits at home will be 2-3 x per week to assess and teach medical management.
Daughter is aware that [facility] will contact them for start of care in 1-2 days after discharge from . [facility] referral completed in [facility].
== END 2024-07-27 17:28 | disposition home health service (06) | DRG 547 ==
LOC: 3 WEST ACU 06:38
PROVIDERS: Internal Medicine; Registered Nurse; ADMITTING PHYSICIAN Hospitalist; ATTENDING PHYSICIAN Internal Medicine; EMERGENCY PHYSICIAN Emergency Medicine; FAMILY PHYSICIAN Student in an Organized Health Care Education/Training Program
DX: M35.3 Polymyalgia rheumatica (principal); I25.10 Atherosclerotic heart disease of native coronary artery without angina pectoris; N40.0 Benign prostatic hyperplasia without lower urinary tract symptoms; K21.9 Gastro-esophageal reflux disease without esophagitis; I10 Essential (primary) hypertension; W19.XXXA Unspecified fall, initial encounter; Z95.5 Presence of coronary angioplasty implant and graft; Z87.891 Personal history of nicotine dependence; Z88.0 Allergy status to penicillin; Z79.82 Long term (current) use of aspirin; E78.00 Pure hypercholesterolemia, unspecified; R29.6 Repeated falls; Z11.52 Encounter for screening for COVID-19
CPT/HCPCS: 71046; 72190; 73110; 73564; 80048; 80053; 81003; 81015; 82248; 82550; 83880; 84443; 84484; 84550; 85025; 85027; 85652; 86140; 86308; 87040; 87086; 87502; 87807; 87811; 93005; 96374; 97116; 97162; 97166; 97530; 97535; 99285